=== PATIENT | female | born 1950 | race Caucasian/White ===

== ENCOUNTER 2018-07-23 09:27 | Day surgery (SDC) | payer MEDICARE, OTHER, SELFPAY ==
[2018-07-23 09:56] VITALS: BP 153/85; PULSE 77; RESP 16; TEMP 35.8; O2SAT 97
[2018-07-23] MEDS: Lactated Ringers 1,000 ML 30 ML IV (10:55)
--- NOTE | 2018-07-23 12:32 | W.PM.HP.N ---
Date of service: 07/23/18 Time of Service: 12:32 Assessment and Plan (1) Personal history of colonic polyps: Current visit: Yes Status: Acute I reviewed the colonoscopy procedure with Ms. Nunez, and discussed the risks of the procedure with her. All her questions were answered to her satisfaction History of Present Illness Chief Complaint: Personal history: Polyps Narrative: 67-year-old woman presenting for colorectal cancer screening by colonoscopy. She has been asymptomatic since her last colonoscopy. She did have polyps on her last colonoscopy. She has no family history of colorectal cancer. Review of Systems Review of Systems Constitutional: Denies fever, chills, malaise, fatigue, weight loss, sweating; Neurological: denies headache, seizures, syncope; weakness Eyes: denies loss of vision, double vision, blurry vision, [wears corrective lenses]; Ears,nose, throat: denies loss of hearing, tinnitus, vertigo, epistaxis, hoarseness, throat swelling. Cardiac: denies chest pain with exertion, palpation, pain shooting from chest into arm. Respiratory: denies cough, sputum production, chest congestion, wheezing. Gastrointestinal: denies abdominal pain, dysphagia, nausea, vomiting, hematamesis, hematochezia, melena. Genitourinary: denies frequency, urgency, hesitancy, incontinence, and dysuria. Musculoskeletal: denies arthralgia, myalgia, fracture, joint pain, joint swelling, back pain. Psychiatric: denies anxiety, depression, difficulty concentrating, difficulty sleeping, irritability. PFSH Medical History Dyspareunia in female History of colon polyps Hyperlipemia Overweight SVT (supraventricular tachycardia) Social History Smoking/Tobacco Use Status: Never Meds Home Medications Medication Instructions Recorded Confirmed Type multivitamin [Multiple Vitamins] 1 ea PO DAILY 01/10/13 07/23/18 History atorvastatin 20 mg PO HS #90 tab 10/31/13 07/23/18 History cholecalciferol (vitamin D3) 400 unit PO DAILY 12/11/17 07/23/18 History [Vitamin D3] metoprolol tartrate 50 mg PO BID #60 tab 03/27/18 07/23/18 Rx bisacodyl [Dulcolax] 5 mg PO ONCE #4 tab 06/07/18 07/23/18 Rx polyethylene glycol 3350 [Miralax] 17 g PO DAILY #255 gm 06/07/18 07/23/18 Rx Allergies Allergy/AdvReac Type Severity Reaction Status Date / Time codeine Allergy Mild RASH Unverified 07/23/18 10:02 erythromycin base AdvReac Intermediate NAUSEA/VOMI Unverified 07/23/18 10:02 TING sertraline AdvReac Mild Diarrhea & Unverified 07/23/18 10:02 Fatigue (50mg) Exam Narrative Exam Narrative: General: Awake, alert, oriented x 3, well groomed Neurological: cranial nerves II-12 grossly intact, moves all extremities, no focal deficits. HEENT: Normacephalic, atruamatic, pupils are equal, round, and reactive to light, extraocular muscles intact, mucousa moist and pink. Neck: normal visual inspection, supple, trachea midline. Heart: regular rate, rhythm Respiratory: No wheezing, cough, sputum production, or chest congestion. breathing unlabored. Abdomen: Soft, non-tender, non-distended, no hernias. Extremities: no cyanosis, clubbing or edema. Integument: warm, dry, normal turgor, no rashes, or lesion.
--- NOTE | 2018-07-23 12:41 | HPE_ITS ---
Date of service: 07/23/18 Time of Service: 12:32 Assessment and Plan (1) Personal history of colonic polyps: Current visit: Yes Status: Acute I reviewed the colonoscopy procedure with Ms. Nunez, and discussed the risks of the procedure with her. All her questions were answered to her satisfaction History of Present Illness Chief Complaint: Personal history: Polyps Narrative: 67-year-old woman presenting for colorectal cancer screening by colonoscopy. She has been asymptomatic since her last colonoscopy. She did have polyps on her last colonoscopy. She has no family history of colorectal cancer. Review of Systems Review of Systems Constitutional: Denies fever, chills, malaise, fatigue, weight loss, sweating; Neurological: denies headache, seizures, syncope; weakness Eyes: denies loss of vision, double vision, blurry vision, [wears corrective lenses]; Ears,nose, throat: denies loss of hearing, tinnitus, vertigo, epistaxis, hoarseness, throat swelling. Cardiac: denies chest pain with exertion, palpation, pain shooting from chest into arm. Respiratory: denies cough, sputum production, chest congestion, wheezing. Gastrointestinal: denies abdominal pain, dysphagia, nausea, vomiting, hematamesis, hematochezia, melena. Genitourinary: denies frequency, urgency, hesitancy, incontinence, and dysuria. Musculoskeletal: denies arthralgia, myalgia, fracture, joint pain , joint swelling, back pain. Psychiatric: denies anxiety, depression, difficulty concentrating, difficulty sleeping, irritability. PFSH Medical History Dyspareunia in female History of colon polyps Hyperlipemia Overweight SVT (supraventricular tachycardia) Social History Smoking/Tobacco Use Status: Never Meds Home Medications Medication Instructions Recorded Confirmed Type multivitamin [Multiple Vitamins] 1 ea PO DAILY 01/10/13 07/23/18 History atorvastatin 20 mg PO HS #90 tab 10/31/13 07/23/18 History cholecalciferol (vitamin D3) 400 unit PO DAILY 12/11/17 07/23/18 History [Vitamin D3] metoprolol tartrate 50 mg PO BID #60 tab 03/27/18 07/23/18 Rx bisacodyl [Dulcolax] 5 mg PO ONCE #4 tab 06/07/18 07/23/18 Rx polyethylene glycol 3350 [Miralax] 17 g PO DAILY #255 gm 06/07/18 07/23/18 Rx Allergies Allergy/AdvReac Type Severity Reaction Status Date / Time codeine Allergy Mild RASH Unverified 07/23/18 10:02 erythromycin base AdvReac Intermediate NAUSEA/VOMI Unverified 07/23/18 10:02 TING sertraline AdvReac Mild Diarrhea & Unverified 07/23/18 10:02 Fatigue (50mg) Exam Narrative Exam Narrative: General: Awake, alert, oriented x 3, well groomed Neurological: cranial nerves II-12 grossly intact, moves all extremities, no focal deficits. HEENT : Normacephalic, atruamatic, pupils are equal, round, and reactive to light, extraocular muscles intact, mucousa moist and pink. Neck: normal visual inspection, supple, trachea midline. Heart: regular rate, rhythm Respiratory: No wheezing, cough, sputum production, or chest congestion. breathing unlabored. Abdomen: Soft, non- tender, non-distended, no hernias. Extremities: no cyanosis, clubbing or edema. Integument: warm, dry, normal turgor, no rashes, or lesion.
--- NOTE | 2018-07-23 12:42 | W.PM.DSUDISC ---
Discharge Plan Disposition Patient Disposition: HOME Condition: Good Discharge Details Reason For Visit: Colorectal cancer screening with a personal histor Attending Provider: Lan Downey Primary Care Provider: Fany Ortiz Home Meds and New Rx's Prescriptions: Continue multivitamin [Multiple Vitamins] 1 EACH tablet 1 ea PO DAILY RF: 0 atorvastatin 40 MG tablet 20 mg PO HS Qty: 90 RF: 3 cholecalciferol (vitamin D3) [Vitamin D3] 400 UNIT tablet 400 unit PO DAILY RF: 0 metoprolol tartrate 50 MG tablet 50 mg PO BID Qty: 60 RF: 0 Discontinued polyethylene glycol 3350 [Miralax] 17 GM powder in packet 17 g PO DAILY Qty: 255 RF: 0 bisacodyl [Dulcolax (bisacodyl)] 5 MG tablet,delayed release (DR/EC) 5 mg PO ONCE Qty: 4 RF: 0 Discharge Instructions Instructions: Colonoscopy (DC) Activity:: Activity as Tolerated Diet:: As Tolerated Discharge Orders Discharge Orders: Discharge Order (Routine); Ordered 07/23/18 Ordered By: Lan Downey DS: Diagnosis Discharge Diagnosis (1) Personal history of colonic polyps: Status: Acute
--- NOTE | 2018-07-23 13:05 | BOWEL_PTH ---
PATIENT: Juanita Nunez LOC: [facility] U#:[id number] AGE/SX: 67/F ROOM: RE07/23/[address]: Lan Downey DO : 1950 BED: DIS: 07/23/2018 SPEC #: [id number] RECD: 07/23/18 16:57 STATUS: KAY RE #: [id number] CHICHI: 07/23/18 13:[address]: Lan Downey DEPT: Surgical Specimen RECD BY: Pat Rose ENTERED: 07/23/18 16:58 SP TYPE: Bowel OTHR DR: Fany Ortiz Tissues: 1 - BIOPSY BOWEL Procedures: GROSS AND MICRO LEVEL 4 Comments: [id number]
--- NOTE | 2018-07-23 13:23 | COLE_ITS ---
Date of service: 07/23/18 Time of Service: 13:19 Colonoscopy Report Date of procedure: 07/23/18 Post-op diagnosis procedure note: other (1. Ascending colon 2. Moderate sigmoid diverticulosis 3. Grade 2 hemorrhoids) Procedure: Colonoscopy to the cecum with biopsy by cold forceps Surgeon: Lan Downey Anesthesia proc note operative: MAC (Clara Wagner CRNA ASA 2, Mallampati 2) Estimated blood loss (mL): 1 Pathology: other (A sending colon polyp) Complications: None Disposition: same day Indications: 67-year-old woman presenting for colorectal cancer screening with a personal history of colon polyps. She has been asymptomatic since her last colonoscopy. Has no family history of colorectal cancer. The procedure has been reviewed with her, the risks of the procedure were discussed. All her questions were answered her satisfaction. Consents been obtained to proceed with colonoscopy Prep: Miralax/Dulcolax (Prep quality good) Findings: In examining the colon from cecum to anus, a single polyp was identified in the ascending colon which was less than 1 cm in greatest diameter and removed by cold biopsy forceps. The patient was also noted to have mild sigmoid diverticulosis, And at the anorectal junction grade 2 hemorrhoids Procedure Description: The patient was seen in the day surgery waiting area. Her identification was confirmed, and procedure check. She was then brought to the procedure room. Monitoring for telemetry, blood pressure, oxygen saturation, and end tidal CO2 monitoring were applied. An appropriate time out was performed to confirm, identification, allergies, medication, procedure, was performed. Sedation was titrated for affect by the MEDICAL RECORDS TECH; Once adequate sedation was achieved, I performed a inspection of the external perineum, and a digitial rectal examination. No significant external abnormalities were noted. On digital rectal examination, there was no blood, no masses, good rectal tone. I advanced the colonoscope from the anus to the cecum under direct visualization. The cecum was identified by the ileal-cecal valve, and the appendiceal orifice. The scope was then withdrawn in circumferential manner from the cecum to the rectum. A single polyp was identified in the ascending colon, the polyp was less than 1 cm in greatest diameter, and subsequently removed by cold biopsy forceps. Also, noted in the colon was some mild sigmoid diverticulosis. The scope was then withdrawn into the rectum, and retroflexed. Grade 2 hemorrhoids were noted in the anorectal junction. The scope was then withdrawn, terminating the procedure. There were no complications during the procedure, and the patient tolerated the procedure well. She was returned to the day surgery recovery area in good condition. Plan: We will await pathology before making further recommendations as to the polyp. If she continues to have problems with her hemorrhoids, she would be a candidate for hemorrhoid banding; otherwise, conservative management with topical treatment and fiber therapy are appropriate.
[2018-07-23 13:49] VITALS: BP 140/83; PULSE 80; RESP 18; TEMP 36.6; O2SAT 100
== END 2018-07-23 14:12 | disposition home or self-care (01) ==
PROVIDERS: PCP Family Medicine; Visit Provider Surgery
PROC: 0DJD8ZZ Inspection of Lower Intestinal Tract, Via Natural or Artificial Opening Endoscopic (ICD-10-PCS; CPT 45378; principal; 2018-07-23 11:15)
DX: Z12.11 Encounter for screening for malignant neoplasm of colon (principal); Z86.010 Personal history of colon polyps; D12.2 Benign neoplasm of ascending colon; K57.30 Diverticulosis of large intestine without perforation or abscess without bleeding; K64.1 Second degree hemorrhoids
CPT/HCPCS: 45380; 88305; NC; J2405

== ENCOUNTER 2019-04-18 09:03 | Outpatient (REF) | payer OTHER, SELFPAY ==
[2019-04-18 12:33] LABS: ALT 25 U/L (12-78); AST 23 U/L (15-37); Albumin 3.5 g/dL (3.4-5.0); Alkaline Phosphatase 87 U/L (46-116); Anion Gap 9.3 mmol/L (3-11); BUN 23 mg/dL (7-18); Bilirubin, Total 0.4 mg/dL (0.2-1.0); CO2 25.7 mmol/L (21.0-32.0); CREATININE 0.79 mg/dL (0.55-1.02); Calcium 9.6 mg/dL (8.5-10.1); Chloride 108 mmol/L (98-107); Glucose 95 mg/dL (70-100); Potassium 4.5 mmol/L (3.5-5.1); Sodium 143 mmol/L (136-145); TSH (W/Ref FT4) 6.13 uIU/mL (0.358-3.74); Total Protein 6.4 g/dL (6.4-8.2)
[2019-04-18 13:09] LABS: FREE T4 0.92 ng/dL (0.76-1.46)
[2019-04-18 15:49] LABS: Calculated LDL 122; Cholesterol 189 mg/dL (50-200); HDL Cholesterol 48 mg/dL (40-60); Triglyceride 95 mg/dL (30-150)
== END 2019-04-18 09:23 ==
LOC: NCHCN 09:03
PROVIDERS: PCP Family Medicine; Visit Provider Family Medicine
DX: E78.5 Hyperlipidemia, unspecified (principal); I47.1 Supraventricular tachycardia
CPT/HCPCS: 80053; 80061; 83721; 84439; 84443

== ENCOUNTER 2019-07-17 11:36 | Emergency (ER) | payer OTHER, SELFPAY ==
[2019-07-17 11:40] VITALS: BP 133/74; PULSE 88; RESP 18; TEMP 36.5; O2SAT 96
--- NOTE | 2019-07-17 12:03 | ED.GENADUL_ITS ---
Discharge Plan Disposition Patient Disposition: HOME Condition: Stable Discharge Details Chief Complaint: RespSymp Clinical Impression: Pneumonia Primary Care Provider: Fany Ortiz ED Provider: Sarah Rodrigues Home Meds and New Rx's Prescriptions: New amoxicillin-pot clavulanate [Augmentin] 875-125 mg tablet 1 tab PO BID 7 Days Qty: 14 RF: 0 Continued multivitamin [Multiple Vitamins] 1 EACH tablet 1 ea PO DAILY RF: 0 atorvastatin 40 MG tablet 20 mg PO HS Qty: 90 RF: 3 cholecalciferol (vitamin D3) [Vitamin D3] 400 UNIT tablet 400 unit PO DAILY RF: 0 metoprolol tartrate 50 MG tablet 50 mg PO BID Qty: 60 RF: 0 Discharge Instructions Instructions: Pneumonia (ED) Additional Instructions: Take the antibiotics until finished. Use the albuterol inhaler as needed and directed for shortness of breath. Drink plenty of fluids and get plenty of rest. Take [id number] cough and cold medication as needed and directed. Follow-up with your primary care doctor this week for reevaluation. Return immediately to the emergency department if you develop any worsening or new concerning symptoms. Discharge Data Discharge Date/Time-TO BE ENTERED AT DEPARTURE: 07/17/19 13:46 Discharge Physician: Sarah Rodrigues Medical Decision Making 68-year-old female with history of hypertension, hyperlipidemia, SVT who presents with dry cough, and occasional shortness of breath for the past 6 days. She has a history of pneumonia and states she wanted to be evaluated before it developed into this. She denies any fever, chest pain and has had a good appetite. Vitals within normal limits. Lungs clear to auscultation. She appears nontoxic. No wheezing. Chest x-ray noted left lower lobe pneumonia versus atelectasis. In setting of patient's symptoms, will treat for possible pneumonia. Prescription for augmentin given. She is advised to drink plenty of fluids, get plenty of rest, take [id number] symptomatic cough and cold medication. She is advised to follow-up with her primary care doctor for reevaluation and to return here anytime if worse. Medical Records Medical records reviewed: Yes I reviewed the patient's medical records. Imaging Data Radiologic Study: Radiologist's impression: XR Chest, 2 Views Exam date and time: 07/17/2019 12:04 PM Clinical history: 68 years old, female; Cough and shortness of breath and other: Cough, shortness of breath, R/O pneumonia TECHNIQUE: Imaging protocol: XR of the chest Views: 2 views. COMPARISON: CR CHEST 2 VIEWS PA,LAT 03/26/2018 10:08 AM FINDINGS: Lungs: Opacity in the left lower lobe may represent atelectasis or pneumonia. Pleural space: Unremarkable. No pleural effusion. No pneumothorax. Heart/Mediastinum: Unremarkable. No cardiomegaly. Bones/joints: Unremarkable. IMPRESSION: Opacity in the left lower lobe may represent atelectasis or pneumonia. HPI General Mode of arrival: ambulatory . Date/Time Provider Initiated Documentation: 07/17/19 11:54 . Limitations to Documentation: no limitations . Information obtained by: patient . HPI Narrative: Patient is a 68-year-old female with history of hypertension, hyperlipidemia, sleep apnea, SVT who presents with dry cough, intermittent shortness of breath for the past 6 days. She has a history of pneumonia last year and states her symptoms feel similar but she was much more sick last year. She denies any known fever or chest pain. She states she has been eating and drinking well. She denies any recent antibiotics. Related Data Home Medications Medication Instructions Recorded Confirmed multivitamin [Multiple Vitamins] 1 ea PO DAILY 01/10/13 07/17/19 atorvastatin 20 mg PO HS #90 tab 10/31/13 07/17/19 cholecalciferol (vitamin D3) 400 unit PO DAILY 12/11/17 07/17/19 [Vitamin D3] metoprolol tartrate 50 mg PO BID #60 tab 03/27/18 07/17/19 amoxicillin-pot clavulanate 1 tab PO BID 7 Days #14 tab 07/17/19 [Augmentin] Previous Rx's Medication Instructions Recorded metoprolol tartrate 50 mg PO BID #60 tab 03/27/18 amoxicillin-pot clavulanate 1 tab PO BID 7 Days #14 tab 07/17/19 [Augmentin] Allergies Allergy/AdvReac Type Severity Reaction Status Date / Time codeine Allergy Mild RASH Unverified 07/17/19 11:47 erythromycin base AdvReac Intermediate NAUSEA/VOMI Unverified 07/17/19 11:47 TING sertraline AdvReac Mild Diarrhea & Unverified 07/17/19 11:47 Fatigue (50mg) General Stated Complaint: RespSymp XIOMY: 3 Review of Systems Review of Systems ROS Unobtainable: All systems reviewed & are unremarkable except as noted in HPI and below Constitutional Constitutional: Reports as per HPI, Denies chills and Denies fever(s) Eyes Eyes: Denies blurry vision ENT Ears, Nose, Mouth, and Throat: Denies dizziness, Denies sore throat and Denies throat swelling Cardiovascular Cardiovascular: Denies chest pain and Reports dyspnea Respiratory Respiratory: Reports cough and Reports dyspnea Gastrointestinal Gastrointestinal: Denies abdominal pain, Denies diarrhea and Denies vomiting Genitourinary Genitourinary: Denies hematuria and Denies dysuria Musculoskeletal Musculoskeletal: Denies back pain and Denies numbness Integumentary/Breasts Skin/Breast: Denies lesions and Denies rash Neurologic Neurologic: Denies dizziness, Denies focal weakness and Denies numbness Allergic/Immunologic Allergic/Immunologic: Denies throat swelling PFSH Medical History Abnormal colonoscopy (Acute 07/23/18) Dr Downey, tubular adenoma, repeat in 5 years Dyspareunia in female History of colon polyps Hyperlipemia Overweight SVT (supraventricular tachycardia) Tubular adenoma of colon (Acute 07/23/18) Dr Downey, repeat colo in five years Surgical History History of ankle surgery (Acute) History of knee surgery (Acute) History of tonsillectomy (Chronic) Social History Smoking/Tobacco Use Status: Never Alcohol Intake: current Alcohol Intake frequency: a few times a month Drug use: Never Do you feel safe at home: Yes Do you feel safe in your relationship?: Yes Exam Const General: cooperative and healthy appearing Orientation: alert and awake HENWV Head: normal to inspection Ears: hearing grossly normal bilaterally, external ears normal and TM's normal bilaterally General nose exam: external nose normal Face and sinus: normal facial exam Mouth: oral mucosae normal Teeth and gingiva: dentition normal Throat: posterior oropharynx normal Eyes General: appearance normal, both eyes and all related structures Eyelids: eyelids normal EOM: EOM intact bilaterally Neck Neck: normal visual inspection Lymphatic: no lymphadenopathy noted Chest Chest: normal inspection of the chest Resp Effort & Inspection: normal respiratory effort and able to speak in complete sentences Auscultation: clear to auscultation bilaterally Cardio Rate: regular rate Rhythm: regular rhythm GI Inspection: normal to inspection Palpation: soft, not firm, no guarding, no hepatosplenomegaly, no masses and nontender Auscultation: normal bowel sounds Skin General skin exam: no rashes or lesions noted Neuro General: alert and awake Cognition: normal cognition Speech: speech normal Gait: normal gait Motor: muscle tone normal throughout Sensory Exam: no sensory deficits noted Extrem General: normal to inspection, full ROM, normal capillary refill and no edema Psych Appearance: grossly normal Mental Status: mental status grossly normal Speech and Movement: speech and movement normal Affect: normal affect Thought Process: normal Course Vital Signs Vital signs: Vital Signs Temperature 97.7 F 07/17/19 11:40 Pulse 88 07/17/19 11:40 Respiratory Rate 18 07/17/19 11:40 Blood Pressure 133/74 07/17/19 11:40 Pulse Oximetry 96 07/17/19 11:40 Temperature 97.7 F 07/17/19 11:40 Temperature Source Tympanic 07/17/19 11:40 Pulse 88 07/17/19 11:40 Respiratory Rate 18 07/17/19 11:40 Respiratory Effort Non-Labored 07/17/19 11:48 Respiratory Depth Normal 07/17/19 11:48 Blood Pressure 133/74 07/17/19 11:40 Blood Pressure Position Sitting 07/17/19 11:40 Pulse Oximetry 96 07/17/19 11:40 Oxygen Delivery Method Room Air 07/17/19 11:40 Oxygen Flow Rate 0 07/17/19 11:40 Pain Level 0 07/17/19 11:40
--- NOTE | 2019-07-17 12:03 | DI.RAD_ITS ---
EXAM: XR CHEST 2V PA LATERAL INDICATION: cough, shortness of breath, r/o pneumonia. COMPARISON: CHEST 2 VIEWS PA,LAT from 03/26/2018 TECHNIQUE: 2D digital imaging was performed. FINDINGS: Examination is compared with prior examination of 03/26/2018. Multiple bilateral pulmonary radiodens ities seen on the prior examination are largely resolved. There are some patchy areas of increased r adiodensity in the left lung base which could represent acute or persistent radiodensities. Otherwis e lungs appear clear. No pleural effusion seen. IMPRESSION: Conclusion left basilar radiodensities, acute infectious process possible, appropriate follow-up stud ies requested.
--- NOTE | 2019-07-17 12:37 | DI.VRAD_ITS ---
PROCEDURE INFORMATION: Exam: XR Chest, 2 Views Exam date and time: 07/17/2019 12:04 PM Clinical history: 68 years old, female; Cough and shortness of breath and other: Cough, shortness of breath, R/O pneumonia TECHNIQUE: Imaging protocol: XR of the chest Views: 2 views. COMPARISON: CR CHEST 2 VIEWS PA,LAT 03/26/2018 10:08 AM FINDINGS: Lungs: Opacity in the left lower lobe may represent atelectasis or pneumonia. Pleural space: Unremarkable. No pleural effusion. No pneumothorax. Heart/Mediastinum: Unremarkable. No cardiomegaly. Bones/joints: Unremarkable. IMPRESSION: Opacity in the left lower lobe may represent atelectasis or pneumonia. Dictated and Authenticated by: Naty Tamayo MD. Ordering:DAMION Smith MD
[2019-07-17] MEDS: Albuterol HFA 8 GM 60 PUFF INH IH (13:49)
== END 2019-07-17 13:46 | disposition home or self-care (01) ==
PROVIDERS: Emergency Provider Physician Assistant; PCP Family Medicine
DX: J18.9 Pneumonia, unspecified organism (principal); I10 Essential (primary) hypertension
CPT/HCPCS: 99283; 71046; 99282

== ENCOUNTER 2019-08-25 01:40 | Outpatient (CLI) | payer OTHER, SELFPAY ==
--- NOTE | 2019-08-25 14:30 | DI.US_ITS ---
APPROVED REPORT Conclusion Left Ventricle : The left ventricle is normal size. The left ventricular ejection fraction is within the normal range. There is normal left ventricular wall thickness. There is normal LV segmental wall motion. LVEF is 65-70%. Right Ventricle : The right ventricle is normal size. The right ventricular systolic function is norm al. Atria : The left atrium size is normal. The right atrium size is normal. Aortic Valve : The Aortic valve is sclerotic. Aortic valve is probably trileaflet. Trace aortic regur gitation. There is no aortic valvular stenosis. Mitral Valve : The mitral valve is normal in structure. Mild mitral regurgitation. No evidence of nicanor ral valve stenosis. Tricuspid Valve : The tricuspid valve is normal in structure. Mild tricuspid regurgitation. Pulmonic Valve : Pulmonic valve is not well visualized. Great Vessels : IVC is normal in size and collapses >50% with inspiration. RVSP is estimated to be b etween 22-25 mmHg. There is no prior echocardiogram available for comparison EXAM: Comprehensive 2D, Doppler, and color-flow Echocardiogram Patient Location: Out-Patient Fitness Leader: ALEX Dos Santos (AE) Indications: SVT Left Ventricle The left ventricle is normal size. The left ventricular ejection fraction is within the normal range. There is normal left ventricular wall thickness. There is normal LV segmental wall motion. The left ventricular diastolic function is normal. LVEF is 65-70%. Right Ventricle The right ventricle is normal size. The right ventricular systolic function is normal. Atria The left atrium size is normal. The right atrium size is normal. Aortic Valve The Aortic valve is sclerotic. Aortic valve is probably trileaflet. There is no aortic valvular steno sis. Trace aortic regurgitation. Mitral Valve The mitral valve is normal in structure. No evidence of mitral valve stenosis. Mild mitral regurgitat ion. Tricuspid Valve The tricuspid valve is normal in structure. Mild tricuspid regurgitation. Pulmonic Valve Pulmonic valve is not well visualized. Great Vessels The aortic root is normal in size. IVC is normal in size and collapses >50% with inspiration. RVSP is estimated to be between 22-25 mmHg Pericardium There is no pericardial effusion. 2D Dimensions IVSd 1.02 cm F: 0.6-1.0 LV EDV A2C 71.54 mL PWd 1.04 cm F: 0.6 - 1.0 LV EDV A4C 87.31 mL LVDd 4.36 cm F: 3.9 - 5.3 LA Volume Index A2C 29.27 mL/m2 LVDs 2.56 cm F: 2.2 - 3.5 LA Volume Index A4C 22.02 mL/m2 Aortic Root 2.76 cm F: 2.7 - 3.3 LA Volume Index Biplane 25.94 mL/m2 Left Atrium 3.05 cm F: 2.7 - 3.8 LA Area A4C 16.39 cm2 RA Area A4C 16.50 cm2 LA Area A2C 19.31 cm2 LVOT 1.69 cm (M/F) 1.5-2.5 LA/Aortic Root Ratio 0.91 Ascending Aorta 3.73 cm F: 2.3 - 3.1 EF AP4 65.47 % LVEF (Teich) 72.41 % EF AP2 51.19 % LVEF (Tom's) 60.28 % F: 54 - 74 EF BP 60.28 % FS 41.28 % LV Diastology E Decel Time 234.00 (160-240 msec) E/A Ratio 0.9 MED E' 0.06 (>0.07 m/s) LV E/e MED 10.83 (<14) LAT E' 0.10 (>0.1 m/s) LV E/e LAT 7.13 (<14) Aortic Valve LVOT Area 2.26 cm2 LVOT Peak Orlando. 1.57 m/s LVOT Mean Orlando. 0.95 m/s LVOT Peak Gr. 9.87 mmHg LVOT Mean Gr. 4.39 mmHg LVOT VTI 0.30 m AoV Peak Orlando. 1.67 (0.5-1.3 m/s) AoV Mean Orlando. 1.15 m/s AI PHT 1264.71 msec AO Peak GR. 11.19 mmHg AO Mean GR. 5.87 (<5 mmHg) AO VTI 0.31 (0.18-0.25 m) AV Regurg Decel. 4361.06 msec VICKIE (VTI) 2.11 (2.5-4.5 cm2) VICKIE (VTI) Index 1.06 cm/m2 Mitral Valve MV E Max Orlando. 0.69 (0.4-1.3 m/s) MV A Velocity 0.74 (0.4-1.3 m/s) E/A Ratio 0.93 MV Decel. Time 234.13 (160-240 msec) MV PHT 67.90 msec MVA PHT 3.24 cm2 Pulmonary Valve PV Peak Velocity 0.81 (0.5-1.5 m/s) Tricuspid Valve TR P. Velocity 2.39 m/s TV Regurg Vmax 2.39 m/s TR P. Gradient 22.77 mmHg
== END 2019-08-25 02:00 ==
PROVIDERS: PCP Family Medicine; Visit Provider Internal Medicine Cardiovascular Disease
DX: I47.1 Supraventricular tachycardia (principal); I35.8 Other nonrheumatic aortic valve disorders; I10 Essential (primary) hypertension; E78.5 Hyperlipidemia, unspecified
CPT/HCPCS: 93306

== ENCOUNTER 2019-08-29 10:42 | Outpatient (REF) | payer OTHER, SELFPAY ==
[2019-08-30 11:36] LABS: Hepatitis C Ab w Rflx HCV PCR Negative (NEGAT)
== END 2019-08-29 11:02 ==
LOC: NCHCN 10:42
PROVIDERS: PCP Family Medicine; Visit Provider Family Medicine
DX: Z11.59 Encounter for screening for other viral diseases (principal); R69 Illness, unspecified
CPT/HCPCS: 86803

== ENCOUNTER 2019-12-27 08:48 | Outpatient (CLI) | payer OTHER, SELFPAY | END 2019-12-27 09:08 | PROVIDERS: PCP Family Medicine; Visit Provider Internal Medicine Cardiovascular Disease | DX: I47.1 Supraventricular tachycardia (principal); I10 Essential (primary) hypertension | CPT/HCPCS: 99204; 93005; 93010 ==

== ENCOUNTER 2020-01-05 15:07 | Outpatient (CLI) | payer OTHER, SELFPAY ==
[2020-01-05 16:25] LABS: Anion Gap 5.5 mmol/L (3-11); BUN 24 mg/dL (7-18); CO2 32.5 mmol/L (21.0-32.0); CREATININE 0.96 mg/dL (0.55-1.02); Calcium 9.6 mg/dL (8.5-10.1); Chloride 103 mmol/L (98-107); Estimated GFR 57.29 (mL/min/1.73m2); Glucose 93 mg/dL (74-106); Potassium 4.4 mmol/L (3.5-5.1); Sodium 141 mmol/L (136-145)
== END 2020-01-05 15:27 ==
PROVIDERS: PCP Family Medicine; Visit Provider Internal Medicine Cardiovascular Disease
DX: I10 Essential (primary) hypertension (principal); Z79.899 Other long term (current) drug therapy
CPT/HCPCS: 36415; 80048

== ENCOUNTER 2020-04-19 08:15 | Outpatient (REF) | payer OTHER, SELFPAY ==
[2020-04-19 20:47] LABS: ALT 20 U/L (14-59); AST 21 U/L (15-37); Albumin 3.9 g/dL (3.4-5.0); Alkaline Phosphatase 79 U/L (46-116); Anion Gap 8.9 mmol/L (3-11); BUN 22 mg/dL (7-18); Bilirubin, Total 0.6 mg/dL (0.2-1.0); CO2 29.1 mmol/L (21.0-32.0); CREATININE 0.94 mg/dL (0.55-1.02); Calcium 9.8 mg/dL (8.5-10.1); Calculated LDL 121 mg/dL (<100); Chloride 104 mmol/L (98-107); Cholesterol 202 mg/dL (<200); Glucose 98 mg/dL (74-106); HDL Cholesterol 44 mg/dL (40-60); Potassium 4.6 mmol/L (3.5-5.1); Sodium 142 mmol/L (136-145); TSH (W/Ref FT4) 6.41 uIU/mL (0.36-3.74); Total Protein 6.9 g/dL (6.4-8.2); Triglyceride 188 mg/dL (<150)
[2020-04-19 21:06] LABS: FREE T4 0.96 ng/dL (0.76-1.46)
== END 2020-04-19 08:35 ==
LOC: NCHCN 08:15
PROVIDERS: PCP Family Medicine; Visit Provider Family Medicine
DX: R03.0 Elevated blood-pressure reading, without diagnosis of hypertension (principal); N94.10 Unspecified dyspareunia; E78.5 Hyperlipidemia, unspecified; E66.3 Overweight
CPT/HCPCS: 80053; 80061; 84439; 84443

== ENCOUNTER 2020-05-17 00:23 | Outpatient (CLI) | payer OTHER, SELFPAY ==
--- NOTE | 2020-05-17 12:59 | DI.MAMMO_ITS ---
EXAM: MG MAMMO SCREENING CLINICAL HISTORY: SCREENING,YEARLY,Z12.31 TECHNIQUE: Bilateral full field digital CC and MLO mammographic images were obtained with 3D tomosyn thesis and utilizing computer aided detection (CAD). COMPARISON: Available for comparison. FINDINGS: Masses/Architectural Distortion: None seen. Microcalcifications: No suspicious pleomorphic-type are seen. Skin Thickening/Nipple Retraction: None. IMPRESSION: 1. No significant interval change with no specific features of malignancy noted. 2. Unless there is more urgent need, screening mammography is recommended, as per [employer] guidelines. BI-RADS Category 1 - Negative Breast Density - Category B - Scattered areas of fibroglandular density A negative radiographic report should not delay biopsy if a dominant or clinically suspicious mass is present. Up to ten percent of cancers are not identified on mammography. A negative report may reinforce clinical impression. Adenosis and dense breasts may obscure an underlying neoplasm. False positive reports average 6 to 10%. Patient will receive a letter notifying them of these results.
== END 2020-05-17 00:43 ==
PROVIDERS: PCP Family Medicine; Visit Provider Family Medicine
DX: Z12.31 Encounter for screening mammogram for malignant neoplasm of breast (principal)
CPT/HCPCS: 77063; 77067

== ENCOUNTER → 2021-02-18 13:55 | Outpatient (BNVA) | payer OTHER, SELFPAY | PROVIDERS: PCP Family Medicine; Referring Provider Family Medicine; Visit Provider Internal Medicine Cardiovascular Disease | DX: I47.1 Supraventricular tachycardia (principal); I10 Essential (primary) hypertension; Z79.899 Other long term (current) drug therapy | CPT/HCPCS: 99214; 99213 ==

== ENCOUNTER 2021-05-03 08:20 | Outpatient (REF) | payer OTHER, SELFPAY ==
[2021-05-03 20:35] LABS: ALT 18 U/L (14-59); AST 10 U/L (15-37); Albumin 3.7 g/dL (3.4-5.0); Alkaline Phosphatase 83 U/L (46-116); Anion Gap 14.4 mmol/L (3-11); BUN 22 mg/dL (7-18); Bilirubin, Total 0.4 mg/dL (0.2-1.0); CO2 26.6 mmol/L (21.0-32.0); CREATININE 0.9 mg/dL (0.55-1.02); Calcium 9.8 mg/dL (8.5-10.1); Calculated LDL 126 mg/dL (<100); Chloride 105 mmol/L (98-107); Cholesterol 207 mg/dL (<200); Glucose 96 mg/dL (74-106); HDL Cholesterol 53 mg/dL (40-60); Potassium 4.6 mmol/L (3.5-5.1); Sodium 146 mmol/L (136-145); TSH (W/Ref FT4) 5.95 uIU/mL (0.36-3.74); Total Protein 6.6 g/dL (6.4-8.2); Triglyceride 144 mg/dL (<150)
[2021-05-03 20:54] LABS: FREE T4 0.98 ng/dL (0.76-1.46)
== END 2021-05-03 08:21 | disposition home or self-care (01) ==
LOC: NCHCN 08:20
PROVIDERS: PCP Family Medicine; Visit Provider Family Medicine
DX: Z00.00 Encounter for general adult medical examination without abnormal findings (principal); I10 Essential (primary) hypertension; E78.5 Hyperlipidemia, unspecified; E66.3 Overweight
CPT/HCPCS: 80053; 80061; 84439; 84443

== ENCOUNTER → 2022-05-06 09:41 | Outpatient (BNVA) | payer MEDICARE, SELFPAY | PROVIDERS: PCP Family Medicine; Referring Provider Family Medicine; Visit Provider Internal Medicine Cardiovascular Disease | DX: I47.1 Supraventricular tachycardia (principal); I10 Essential (primary) hypertension | CPT/HCPCS: 93005; 99214; 99213 ==

== ENCOUNTER 2022-05-06 09:43 | Outpatient (CLI) | payer MEDICARE, SELFPAY ==
--- NOTE | 2022-05-06 09:30 | RT.EKG_ITS ---
APPROVED REPORT Exam: Resting ECG Reason for Exam: SVT Patient Location: O HR:106 bpm ECG Measurements Heart Rate 106 AXIS CO 169 P 53 QRSd 93 QRS -9 QT 337 T 55 QTc 448 Conclusion Sinus tachycardia...rate> 99 Baseline wander in lead(s) II,III,aVF,V4,V6
== END 2022-05-06 09:44 | disposition home or self-care (01) ==
LOC: DI.CARD 09:44
PROVIDERS: PCP Family Medicine; Visit Provider Internal Medicine Cardiovascular Disease
DX: I47.1 Supraventricular tachycardia (principal)
CPT/HCPCS: 93010

== ENCOUNTER 2022-06-13 18:59 | Outpatient (REF) | payer MEDICARE, SELFPAY ==
[2022-06-13 19:58] LABS: ALT 20 U/L (14-59); AST 20 U/L (15-37); Albumin 3.6 g/dL (3.4-5.0); Alkaline Phosphatase 79 U/L (46-116); Anion Gap 8.9 mmol/L (3-11); BUN 25 mg/dL (7-18); Bilirubin, Total 0.5 mg/dL (0.2-1.0); CO2 27.1 mmol/L (21.0-32.0); CREATININE 0.9 mg/dL (0.55-1.02); Calcium 9.8 mg/dL (8.5-10.1); Calculated LDL 103 mg/dL (<100); Chloride 106 mmol/L (98-107); Cholesterol 197 mg/dL (<200); Glucose 154 mg/dL (74-106); HDL Cholesterol 49 mg/dL (40-60); Potassium 4.2 mmol/L (3.5-5.1); Sodium 142 mmol/L (136-145); TSH (W/Ref FT4) 2.29 uIU/mL (0.36-3.74); Total Protein 7.4 g/dL (6.4-8.2); Triglyceride 228 mg/dL (<150)
[2022-06-16 05:33] LABS: Vitamin D 25 Total 33.1 ng/mL (30-100)
== END 2022-06-13 19:00 | disposition home or self-care (01) ==
LOC: NCHCN 18:59
PROVIDERS: PCP Family Medicine; Visit Provider Family Medicine
DX: I10 Essential (primary) hypertension (principal); E55.9 Vitamin D deficiency, unspecified; R94.6 Abnormal results of thyroid function studies; E78.5 Hyperlipidemia, unspecified
CPT/HCPCS: 80053; 80061; 82306; 84443

== ENCOUNTER → 2022-06-25 02:14 | Outpatient (CLI) | payer MEDICARE, SELFPAY ==
--- NOTE | 2022-06-25 14:10 | DI.MAMMO_ITS ---
Exam(s) MAMMO SCREENING EXAM: MAMMO SCREENING CLINICAL HISTORY: SCREENING, Z12.31. TECHNIQUE: Bilateral full field digital CC and MLO mammographic images were obtained with 3D tomosyn thesis and utilizing computer aided detection (CAD). COMPARISON: Prior mammograms were reviewed, the most recent being April 2020. FINDINGS: There has been no significant change in appearance and distribution of the fibroglandular tissue. There are no new significant findings in left breast. In the right breast there is a new round noncalcified nodular density seen on both CC and MLO images located 8 cm in from the nipple and measuring approximately 3 x 3 millimeters. There are no malignan t-appearing microcalcification groups in this region or elsewhere in either breast. There is no significant architectural distortion nor skin thickening-retraction. IMPRESSION: 1. No radiographic evidence of malignancy in the left breast. 2. Round 3 millimeter new right breast nodule seen on both CC and MLO views. Spot compression views and ultrasound recommended. BI-RADS Category 0 - Assessment Incomplete: Need additional imaging evaluation Breast Density - Category B - Scattered areas of fibroglandular density Breast density Category C or D implies that the patient has dense breast tissue. Dense breast tissue can make it harder to find cancer on a mammogram. Dense breast tissue is also associated with an incr eased risk of breast cancer. This information about the result of the mammogram report was provided to the patient to raise their awareness. Use this report when you speak with the patient about their risks for breast cancer, which includes their family history. At that time, you may recommend additional screening tests (Ultrasoun d or MRI) as these tests may add significant information. A negative radiographic report should not delay biopsy if a dominant or clinically suspicious mass is present. Up to ten percent of cancers are not identified on mammography. A negative report may reinforce clinical impression. Adenosis and dense breasts may obscure an underlying neoplasm. False positive reports average 6 to 10%. Patient will receive a letter notifying them of these results.
== END ==
PROVIDERS: PCP Family Medicine; Visit Provider Family Medicine
DX: Z12.31 Encounter for screening mammogram for malignant neoplasm of breast (principal); R92.8 Other abnormal and inconclusive findings on diagnostic imaging of breast
CPT/HCPCS: 77063; 77067

== ENCOUNTER → 2022-07-01 01:30 | Outpatient (CLI) | payer MEDICARE, SELFPAY ==
--- NOTE | 2022-07-01 | DI.MAMMO_ITS ---
Exam(s) MG MAMMO SCREEN CALL BACK UNI US BREAST RT COMPLETE EXAM: MG MAMMO SCREEN CALL BACK UNI and U/S breast RT complete CLINICAL HISTORY: F/U MAMMO, NEW RT BREAST NODULE, R92.8. TECHNIQUE: Craniocaudal and mediolateral oblique Full Field Digital Mammography views of the right b reast with Computer Aided Diagnosis followed by Tomosynthesis and right breast ultrasound. COMPARISON: Comparison is made with prior examinations. FINDINGS: Mammography/Tomosynthesis: Masses/Architectural Distortion: There is a well-circumscribed nodule in the inferior right breast on the MLO view. There is also well-circumscribed nodule seen in the medial aspect of the right breast on the additional views. These nodules have been seen on prior examinations and appears stable. Microcalcifictions: No suspicious pleomorphic-type are seen. Skin Thickening/Nipple Retraction: None. Complete right breast US: Echotexture: Normal appearance of the glandular tissue. Shadowing: No suspicious foci. Cyst: None. Solid lesions: None seen. Ductal dilation: None. IMPRESSION: 1. No evidence of malignancy is noted. 2. A six-month follow-up right mammogram is recommended for re-evaluation. 3. The findings were discussed with the patient on the date of the examination. BI-RADS Category 3 - 6 month - Probably Benign Finding: Recommend follow-up imaging in 6 months Breast Density - Category B - Scattered areas of fibroglandular density Breast density Category C or D implies that the patient has dense breast tissue. Dense breast tissue can make it harder to find cancer on a mammogram. Dense breast tissue is also associated with an incr eased risk of breast cancer. This information about the result of the mammogram report was provided to the patient to raise their awareness. Use this report when you speak with the patient about their risks for breast cancer, which includes their family history. At that time, you may recommend additional screening tests (Ultrasoun d or MRI) as these tests may add significant information. A negative radiographic report should not delay biopsy if a dominant or clinically suspicious mass is present. Up to ten percent of cancers are not identified on mammography. A negative report may reinforce clinical impression. Adenosis and dense breasts may obscure an underlying neoplasm. False positive reports average 6 to 10%. Patient will receive a letter notifying them of these results.
== END ==
PROVIDERS: PCP Family Medicine; Visit Provider Family Medicine
DX: R92.8 Other abnormal and inconclusive findings on diagnostic imaging of breast (principal); Z12.31 Encounter for screening mammogram for malignant neoplasm of breast
CPT/HCPCS: 76642; 77063; 77067

== ENCOUNTER → 2022-07-18 00:24 | Outpatient (CLI) | payer MEDICARE, SELFPAY ==
--- OUTSIDE RECORDS SUMMARY | 2022-07-18 00:33 | XMS_ITS | Encounter Summary ---
:1950 Author Organization [facility] Address [address] [place] [address] Care Team Providers Name Role Phone Unavailable Primary Care Provider Unavailable Encounter Details Date Type Department Care Team Description 05/24/2008 Before PRISM [facility] - Adrianna Salas, Converted Visit Maple conversion CRIME VICTIM SPECIALIST (Maple) [address] [place] [address] [place] [phone] (Wo rk) Social History Tobacco Use Types Packs/Day Years Used Date Never Assessed Sex Assigned at Date Recorded Not on file documented as of this encounter Plan of Treatment Not on filedocumented as of this encounter Procedures Procedure Name Priority Date/Time Associated Diagnosis Comme [facility] CYTOPATHOLOGY Routine 05/24/2008 0:00 EDT Results for this procedure are i n the results section . documented in this encounter Results CYTOPATHOLOGY (05/24/2008 0:00 EDT) Pathology Report: CYTOPATHOLOGY REPORT ? [facility] ? LAB Reports generated via [employer] interface contain original data; ? however they are lacking the format of the original report. ? Caution should be taken when reading/interpreting unformatted reports. ? Name: ? HEWITT, VERA L ? Accession #: ? [id number] ? : ? 1950 (Age: 57) ??F ?Collect Date: ? 05/24/2008 ? Location: ? [facility] ? Receive Date: ? 05/25/2008 ? Provider: ?ADRIANNA L R OBINSON CRIME VICTIM SPECIALIST ? Copy to: ? Specimen/Source: ? ThinPrep Pap Test, Cervix, processed on Cytyc ThinPrep ?? Imaging System, with manual evaluation ? Last Menstrual Period: ? years ? Previous Gynecologic Patholo gy: ? Yes: cervical polyp ? Other: ? HPVA - HPV testing requested if ASC-US on the current ThinPrep Pap test. ? SPECIMEN ADEQUACY ? Satisfactory for Eval uation ? - transformation zone compon ent present ? GENERAL CATEGORIZATION ? Negative for Intraepi thelial Lesion or Malignancy ? Document reviewed and electr onically signed by: ? Jose R Costello, CT (ASCP) ? Report Date: ??08/04/ 2008 13:15 ? End of Report ? Specimen Performing Organization Address City/State/ZIP Code Phon e Number [facility] [address] [place] [address] SERVICES [facility] [address] [place] [address] documented in this encounter Visit Diagnoses Not on filedocumented in this encounter
--- OUTSIDE RECORDS SUMMARY | 2022-07-18 00:33 | XMS_ITS | Encounter Summary ---
:1950 Author Organization [facility] Address [address] [place] [address] Care Team Providers Name Role Phone Unavailable Primary Care Provider Unavailable Encounter Details Date Type Department Care Team Description 04/25/2004 Results Only [facility] - Yadira Jiménez son, Adrianna Saleh, BALLET DANCER conversion [address] [place] [phone] (Wo rk) Social History Tobacco Use Types Packs/Day Years Used Date Never Assessed Sex Assigned at Date Recorded Not on file documented as of this encounter Plan of Treatment Not on filedocumented as of this encounter Procedures Procedure Name Priority Date/Time Associated Diagnosis Comme [facility] CYTOPATHOLOGY Routine 04/25/2004 0:00 EDT Results for this procedure are i n the results section . documented in this encounter Results CYTOPATHOLOGY (04/25/2004 0:00 EDT) Pathology Report: CYTOPATHOLOGY REPORT [facility] Reports generated via electronic interface contain tiana ginal data; however they are lacking the format of the original re port. Caution should be taken when reading/interpreting unfo rmatted reports. Name: ? CARSON HEWITT ? Accession #: ? [id number] : ? 1950 (Age: 53) ??F ?Collect Date: ? 10/2003 Location: ? [facility] ? Receive Date : ? 05/01/2004 Provider: ?ADRIANNA DOTY BALLET DANCER Copy to: ? Specimen/Source: ?ThinPrep Pap Test, Cervix/ Endocervix Last Menstrual Period: ? 04/08/2003 ? SPECIMEN ADEQUACY ? Satisfactory for Evaluation - transformation zone component present GENERAL CATEGORIZATION ? Negative for Intraepithelial Lesion or Malignan cy INTERPRETATION ? Reactive cellular randell nges associated with inflammation present (includes repair). Shift in avis present suggestive of bacterial vaginos is. ? Document reviewed and electronically signed by: ? Kendall Ceballos MD ? Report Date: ??05/08/2004 16:57 End of Report Specimen Performing Organization Address City/State/ZIP Code Phon e Number [facility] [address] [place] [address] SERVICES [facility] [address] [place] [address] documented in this encounter Visit Diagnoses Not on filedocumented in this encounter
--- OUTSIDE RECORDS SUMMARY | 2022-07-18 00:33 | XMS_ITS | Encounter Summary ---
:1950 Author Organization [facility] Address [address] [place] [address] Care Team Providers Name Role Phone Unknown, Provider Primary Care Provider Encounter Details Date Type Department Care Team Description 07/23/2018 Results Only [facility] Ilia Stokes, DO [phone] [facility] [facility] [address] [place], [place] [phone] (Wo rk) Social History Tobacco Use Types Packs/Day Years Used Date Never Assessed Sex Assigned at Date Recorded Not on file documented as of this encounter Plan of Treatment Not on filedocumented as of this encounter Procedures Procedure Name Priority Date/Time Associated Diagnosis Comme [facility] SURGICAL PATHOLOGY Routine 07/23/2018 23:16 Resul ts for this EDT procedure are i n the results section. documented in this encounter Results SURGICAL PATHOLOGY (07/23/2018 23:16 EDT) Pathology Report: SURGICAL PATHOLOGY REPORT [facility] Reports generated via electronic interface contain tiana ginal data; LABORATORY however they are lacking the format of the original re port. SERVICES Caution should be taken when reading/interpreting unfo rmatted reports. Name: ? CARSON HEWITT ? Accession #: ? [id number] ? : ? 1950 (Age: 67) ??F ? Collect Date: ? 07/23/2018 ? Location: ? [facility] ? Receive Date: ? 07/23/20 18 ? Provider: ILIA STOKES DO Copy to: VIC MERCHANT MD ? Final Pathologic Diagnosis: COLON, ASCENDING, POLYP, BIOPSY: - Fragments of tubular adenoma. Document reviewed and electronically signed by: JAYCEE HERNANDES MD Report ??Date: 07/26/2018 21:04 By the signature above, the attending physician certif ies that he/she has personally conducted a gross and/or microscopic examin ation of the described specimens and rendered or confirmed the above diagnosi s. Specimen(s) Received: Ascending colon polyp Clinical History: Personal history colon polyps Gross Description: ? Received in formalin labelled with proper patient identification (initials W, V) and ascending colon p olyp are two montoya-pink tissue fragments (0.2 x 0.1 x 0.1 cm and 0.4 x 0.2 x 0.1 cm). Submitted in toto in 1 . DON Wilkerson (ASCP) 07/26/2018 7:52 AM End of Report Specimen Performing Organization Address City/State/ZIP Code Phon e Number [facility] [address] [place] [address] SERVICES documented in this encounter Visit Diagnoses Not on filedocumented in this encounter Care Teams Elementary Spanish Teacher Relationship Specialty Start Date End Date Unknown, Provider, PCP - General 07/23/18 07/25/18 documented as of this encounter
--- OUTSIDE RECORDS SUMMARY | 2022-07-18 00:33 | XMS_ITS | Encounter Summary ---
:[address] [facility] Address [address] [place] [address] Care Team Providers Name Role Phone Unknown, Provider Primary Care Provider Encounter Details Date Type Department Care Team Description 07/23/2018 Hospital Encounter [facility] - S Unknown, Pro Akua flowers MD [address] [facility] [phone] [place] [address] (Work) [phone] Social History Tobacco Use Types Packs/Day Years Used Date Never Assessed Sex Assigned at Date Recorded Not on file documented as of this encounter Discharge Disposition Disposition Code Departure Means Destination Home or Self [place] documented in this encounter Plan of Treatment Not on filedocumented as of this encounter Visit Diagnoses Not on filedocumented in this encounter Care Teams Ship Yard Electrical Person Relationship Specialty Start Date End Date Unknown, Provider, PCP - General 07/23/18 07/25/18 documented as of this encounter
--- OUTSIDE RECORDS SUMMARY | 2022-07-18 00:33 | XMS_ITS | Encounter Summary ---
:1950 Author Organization [facility] Address [address] [place] [address] Care Team Providers Name Role Phone Unavailable Primary Care Provider Unavailable Encounter Details Date Type Department Care Team Description 04/18/2003 Results Only [facility] - Yadira Jiménez son, Adrianna Saleh, CARBON ACCOUNTANT conversion [address] [place] [phone] (Wo rk) Social History Tobacco Use Types Packs/Day Years Used Date Never Assessed Sex Assigned at Date Recorded Not on file documented as of this encounter Plan of Treatment Not on filedocumented as of this encounter Procedures Procedure Name Priority Date/Time Associated Diagnosis Comme nts CYTOPATHOLOGY Routine 04/18/2003 0:00 EDT Results for this procedure are i n the results section . documented in this encounter Results CYTOPATHOLOGY (04/18/2003 0:00 EDT) Pathology Report: CYTOPATHOLOGY REPORT [facility] Reports generated via electronic interface contain tiana ginal data; however they are lacking the format of the original re port. Caution should be taken when reading/interpreting unfo rmatted reports. Name: ? CARSON HEWITT ? Accession #: ? [id number] : ? 1950 (Age: 52) ??F ?Collect Date: ? 03/27 Location: ? [facility] ? Receive Date : ? 04/21/2003 Provider: ?ADRIANNA DOTY CARBON ACCOUNTANT Copy to: ? Specimen/Source: ?ThinPrep Pap Test, Cervix/ Endocervix Last Menstrual Period: ? 04/08/03 ? SPECIMEN ADEQUACY ? Satisfactory for Evaluation - transformation zone component present GENERAL CATEGORIZATION ? Negative for Intraepithelial Lesion or Malignan cy INTERPRETATION ? Shift in avis present suggestive of bacterial vaginosis. ? Document reviewed and electronically signed by: ? FAUSTINO Philip(ASCP) ? Report Date: ??04/26/2003 11:55 End of Report Specimen Performing Organization Address City/State/ZIP Code Phon e Number [facility] [address] [place] [address] SERVICES [facility] [address] [place] [address] documented in this encounter Visit Diagnoses Not on filedocumented in this encounter
--- OUTSIDE RECORDS SUMMARY | 2022-07-18 00:33 | XMS_ITS | Clinical Summary ---
:1950 Author Organization [facility] Address [address] [place] [address] Care Team Providers Name Role Phone Fany Ortiz MD Primary Care Provider Social History Tobacco Use Types Packs/Day Years Used Date Never Assessed Sex Assigned at Date Recorded Not on file Plan of Treatment Health Maintenance Due Date Last Done Comments Fall Risk Screening 2013 Insurance Payer Benefit Plan Subscriber ID Effective Phone Address Typ e / Group Dates MVP MEDICARE MVP GOLD [id number] 2019-Prese [address] Medicare ANYWHERE nt [place], [employer] ge [facility] [id number] Care Teams Pneumatic System Conveyor Operator Relationship Specialty Start Date End Date Fany Ortiz MD PCP - General 07/26/[address] [place] [phone] (Kuyv)
--- OUTSIDE RECORDS SUMMARY | 2022-07-18 00:33 | XMS_ITS | Encounter Summary ---
:1950 Author Organization [facility] Address [address] [place] [address] Care Team Providers Name Role Phone Unavailable Primary Care Provider Unavailable Encounter Details Date Type Department Care Team Description 04/21/2001 Results Only [facility] - Yadira Jiménez son, Adrianna Saleh, SALON RECEPTIONIST conversion [address] [place] [phone] (Wo rk) Social History Tobacco Use Types Packs/Day Years Used Date Never Assessed Sex Assigned at Date Recorded Not on file documented as of this encounter Plan of Treatment Not on filedocumented as of this encounter Procedures Procedure Name Priority Date/Time Associated Diagnosis Comme nts CYTOPATHOLOGY Routine 04/21/2001 0:00 EDT Results for this procedure are i n the results section . documented in this encounter Results CYTOPATHOLOGY (04/21/2001 0:00 EDT) Pathology Report: CYTOPATHOLOGY REPORT [facility] Reports generated via electronic interface contain tiana ginal data; however they are lacking the format of the original re port. Caution should be taken when reading/interpreting unfo rmatted reports. Name: ? CARSON HEWITT ? Accession #: ? [id number] : ? 1950 (Age: 50) ??F ?Collect Date: ? 03/27 Location: ? [facility] ? Receive Date : ? 04/23/2001 Provider: ?ADRIANNA DOTY SALON RECEPTIONIST Copy to: ? Specimen/Source: ?ThinPrep Pap Test, Cervix Last Menstrual Period: ? 04/11/01 spotting ? SPECIMEN ADEQUACY ? Satisfactory for evaluation. GENERAL CATEGORIZATION ? Within Normal Limits ? Document reviewed and electronically signed by: ? FAUSTINO Philip(ASCP) ? Report Date: ??04/26/2001 14:08 End of Report Specimen Performing Organization Address City/State/ZIP Code Phon e Number [facility] [address] [place] [address] SERVICES [facility] [address] [place] [address] documented in this encounter Visit Diagnoses Not on filedocumented in this encounter
--- OUTSIDE RECORDS SUMMARY | 2022-07-18 00:33 | XMS_ITS | Encounter Summary ---
:[address] [facility] Address [address] [place] [address] Care Team Providers Name Role Phone Fany Ortiz MD Primary Care Provider Reason for Referral Referral (Routine/Next Available) - Closed Specialty Diagnoses / Procedures Referred By Contact Refer red To Contact Cardiovascular Disease Diagnoses SVT (supraventricular tachycardia) ([facility]) ([facility]) Geovany Braswell MD [address] [place] [address] Referral ID Status Reason Start Date Expiration Date Visits V isits Requested Authorized [id number] Closed Specialty 11/11/2019 1 1 Services Required Question Answer Reason for Request: paroxysmal SVT Comments Patient from [facility], seen in clinic at [facility] [place] 07/2019. Pt now wants to be re-referred to [facility] cardiology clinic s. The new insulator technician is Tj GONZALEZ MD . Unfortunately he is not on the list of p roviivelisse in the to provider box listed above. Reason for Visit Reason Onset Date Comments Other 11/09/2019 PT WOULD LIKE TO TRA SNFER BACK TO [facility] Encounter Details Date Type Department Care Team Description 11/09/2019 Telephone [facility] - Geovany Braswell [facility] er (PT WOULD LIKE TO [facility] Cardiology Clin ic MD Solitario TRASNFER BACK TO [facility]) [address] [place] [address] [address] [place] [address] (Wo rk) Social History Tobacco Use Types Packs/Day Years Used Date Never Assessed Sex Assigned at Date Recorded Not on file documented as of this encounter Miscellaneous Notes Telephone Encounter - Gerhard Breaux - 11/11/2019 1619 EST Last Braswell note and referral faxed to [facility] Attn: Dr. Yang elephone Encounter - Geovany Braswell MD - 11/11/2019 1112 EST Placed referral order. However, as the system did not allow to specify a provider, I am somewhat concerned about the likelihood for this order to get to the right place through [facility]. Please also fax a paper referral with my last clinic note from 07/2019 to Tj Maynard MD at the [facility] cardiology clinic. Thanks, JM elephone Encounter - Radha Hunter RN - 11/10/2019 1430 EST I am unclear why they would need a referral but would you be willing to do this? elephone Encounter - Jossy Rosas - 11/09/2019 1518 EST Pt called and would like to transfer back to [facility], Cards at [facility] told pt she needed a referral from [facility] in order to do that documented in this encounter Plan of Treatment Scheduled Referrals Name Type Priority Associated Order Schedule Diagnoses AMB CONS/FOLLOW UP Outpatient Referral Routine SVT Or dered: CARDIOLOGY (Supraventricular 11/11/2019 Tachycardia) (CMS-HCC) documented as of this encounter Visit Diagnoses Diagnosis SVT (supraventricular tachycardia) (HCC- CMS) (HCC) - Primary Other specified cardiac dysrhythmias documented in this encounter Care Teams Zoology Teacher Relationship Specialty Start Date End Date Fany Ortiz MD PCP - General 07/26/[address] [place] [phone] documented as of this encounter
--- NOTE | 2022-07-18 10:15 | DI.RAD_ITS ---
Exam(s) XR SHOULDER RT COMPLETE 2+V EXAM: XR SHOULDER RT COMPLETE 2+V CLINICAL HISTORY: RT ARM PAIN, M79.601. TECHNIQUE: 2D digital imaging was performed. Five views. COMPARISON: No exams were available for comparison FINDINGS: BONES: No acute fracture is present. No bony destructive lesion is seen. There is small degenerative cysts are noted in the humeral head. JOINTS: No dislocation present. Mild spurring at the AC joint. Glenohumeral joint space well mainta ined. Humeral head is normally position. SOFT TISSUE: Normal. IMPRESSION: Mild degenerative changes. DATA REPOSITORY: RADIATION DOSE DELIVERED:
== END ==
PROVIDERS: PCP Family Medicine; Visit Provider Family Medicine
DX: M19.011 Primary osteoarthritis, right shoulder (principal)
CPT/HCPCS: 73030

== ENCOUNTER → 2022-08-14 08:33 | Outpatient (BNVA) | payer MEDICARE, SELFPAY | PROVIDERS: PCP Family Medicine; Referring Provider Family Medicine; Visit Provider Student in an Organized Health Care Education/Training Program | DX: M75.81 Other shoulder lesions, right shoulder (principal) | CPT/HCPCS: 20610; 99213; J1040 ==

== ENCOUNTER → 2022-10-16 08:46 | Outpatient (BNVA) | payer MEDICARE, SELFPAY | PROVIDERS: PCP Family Medicine; Referring Provider Family Medicine; Visit Provider Student in an Organized Health Care Education/Training Program | DX: M75.81 Other shoulder lesions, right shoulder (principal) | CPT/HCPCS: 99213 ==

== ENCOUNTER → 2023-01-30 09:12 | Outpatient (BNVA) | payer MEDICARE, SELFPAY | PROVIDERS: PCP Family Medicine; Referring Provider Family Medicine; Visit Provider Student in an Organized Health Care Education/Training Program | DX: M75.81 Other shoulder lesions, right shoulder (principal) | CPT/HCPCS: 99213 ==

== ENCOUNTER 2023-02-11 13:08 | Outpatient (CLI) | payer MEDICARE, SELFPAY ==
--- NOTE | 2023-02-11 | DI.RAD_ITS ---
Exam(s) XR CHEST 2V PA LATERAL EXAM: XR CHEST 2V PA LATERAL CLINICAL HISTORY: COUGH X 1 WK, R05.8, HAS HAD PNEUMONIA ON SEVERAL OCCASIONS TECHNIQUE: 2D digital imaging was performed of the chest. Two images were obtained. PA and lateral views were obtained. COMPARISON: CT CHEST FOR PULMONARY EMBOLUS from 03/22/2018 CR CHEST 2 VIEWS PA,LAT from 03/26/2018 CR,XR XR CHEST 2V PA LATERAL from 07/17/2019 FINDINGS: MEDIASTINUM: Normal. HEART: Normal. PULMONARY VASCULATURE: Normal. LUNGS: No focal consolidating infiltrates. PLEURAL SPACE: No pleural effusion or pneumothorax. BONE:Within normal limits for the patient's age. OTHER FINDINGS:Normal. IMPRESSION: No acute pulmonary findings. DATA REPOSITORY: RADIATION DOSE DELIVERED:
== END 2023-02-11 13:28 ==
LOC: DI 13:08
PROVIDERS: PCP Family Medicine; Visit Provider Physician Assistant Medical
DX: R05.8 Other specified cough (principal)
CPT/HCPCS: 71046

== ENCOUNTER 2023-02-23 04:03 | Outpatient (CLI) | payer MEDICARE, SELFPAY ==
--- NOTE | 2023-02-23 | DI.MAMMO_ITS ---
Exam(s) MG MAMMO DIAGNOSTIC UNI EXAM: MG MAMMO DIAGNOSTIC UNI CLINICAL HISTORY: DIAGNOSTIC, 6 MO F/U, F/U ABNL MAMMO, R92.8. TECHNIQUE: Craniocaudal and mediolateral oblique Full Field Digital Mammography views of the right b reast with Computer Aided Diagnosis followed by Tomosynthesis. COMPARISON: Comparison is made with prior examinations. FINDINGS: Mammography/Tomosynthesis: Masses/Architectural Distortion: The nodule seen in the posterior medial right breast is unchanged as is the nodule seen in the inferior right breast on the MLO view. No new nodules or areas of archite ctural distortion are seen. Microcalcifictions: No suspicious pleomorphic-type are seen. Skin Thickening/Nipple Retraction: None. IMPRESSION: 1. No evidence of malignancy is noted. 2. A six-month follow-up right mammogram is recommended. The patient will then also have her a yearl y screening left mammogram at the same time period 3. The findings were discussed with the patient on the date of the examination. BI-RADS Category 3 - 6 month - Probably Benign Finding: Recommend follow-up imaging in 6 months Breast Density - Category B - Scattered areas of fibroglandular density Breast density Category C or D implies that the patient has dense breast tissue. Dense breast tissue can make it harder to find cancer on a mammogram. Dense breast tissue is also associated with an incr eased risk of breast cancer. This information about the result of the mammogram report was provided to the patient to raise their awareness. Use this report when you speak with the patient about their risks for breast cancer, which includes their family history. At that time, you may recommend additional screening tests (Ultrasoun d or MRI) as these tests may add significant information. A negative radiographic report should not delay biopsy if a dominant or clinically suspicious mass is present. Up to ten percent of cancers are not identified on mammography. A negative report may reinforce clinical impression. Adenosis and dense breasts may obscure an underlying neoplasm. False positive reports average 6 to 10%. Patient will receive a letter notifying them of these results.
== END 2023-02-23 04:23 ==
LOC: DI 04:05
PROVIDERS: PCP Family Medicine; Visit Provider Family Medicine
DX: R92.8 Other abnormal and inconclusive findings on diagnostic imaging of breast (principal)
CPT/HCPCS: 77061; 77065; G0279

== ENCOUNTER 2023-03-12 02:15 | Outpatient (CLI) | payer MEDICARE, SELFPAY ==
--- NOTE | 2023-03-12 07:45 | DI.MRI_ITS ---
Exam(s) MR UPPER JOINT RT WO EXAM: MR UPPER JOINT RT WO CLINICAL HISTORY: PAIN, rt rotator cuff tendinitis, m75.81. TECHNIQUE: Multiplanar multisequence MRI was performed. COMPARISON: CR XR SHOULDER RT COMPLETE 2+V from 07/18/2022 FINDINGS: The examination is limited due to patient motion artifact. BONES: There is no fracture or contusion pattern. JOINTS: Moderate degenerative changes are seen at the acromioclavicular joint. There are degenerativ e changes seen at the glenohumeral joint with articular cartilage thinning and joint space narrowing. TENDONS: Supraspinatus: There is thickening and intermediate signal seen in the supraspinatus tendon consisten t with tendinosis. There is high intensity signal seen in the supraspinatus tendon at its insertion site suggestive of a small intrasubstance tear. Infraspinatus: Unremarkable. Subscapularis: There is tendinosis of the subscapularis tendon. Teres Minor: Unremarkable. Biceps and [place]: Unremarkable. MUSCLES: Unremarkable. GLENOID LABRUM: There does appear to be some thickening of the superior labrum which likely reflects degeneration. No evidence of a tear. SOFT TISSUES: Unremarkable. LIGAMENTS: Unremarkable. OTHER: Subacromial and subdeltoid bursae are unremarkable. IMPRESSION: 1. Examination limited by patient motion artifact. 2. Tendinosis of the supraspinatus and subscapularis tendons with a question of a small intrasubstanc e supraspinatus tendon tear at its insertion site. 3. Probable degeneration of the superior labrum. In this patient, an MR arthrogram might be useful f or further evaluation of the labrum and paralabral structures. 4. Degenerative changes of the acromioclavicular and glenohumeral joints. DATA REPOSITORY:
== END 2023-03-12 02:35 ==
LOC: DI 02:16
PROVIDERS: PCP Family Medicine; Visit Provider Student in an Organized Health Care Education/Training Program
DX: M75.81 Other shoulder lesions, right shoulder (principal); M19.011 Primary osteoarthritis, right shoulder; M67.813 Other specified disorders of tendon, right shoulder
CPT/HCPCS: 73221

== ENCOUNTER → 2023-03-26 09:40 | Outpatient (BNVA) | payer MEDICARE, SELFPAY | PROVIDERS: PCP Family Medicine; Referring Provider Family Medicine; Visit Provider Student in an Organized Health Care Education/Training Program | DX: M75.81 Other shoulder lesions, right shoulder (principal); M19.011 Primary osteoarthritis, right shoulder | CPT/HCPCS: 99214 ==

== ENCOUNTER → 2023-04-02 13:08 | Outpatient (BNVA) | payer MEDICARE, SELFPAY | PROVIDERS: PCP Family Medicine; Referring Provider Family Medicine; Visit Provider Student in an Organized Health Care Education/Training Program | DX: M19.011 Primary osteoarthritis, right shoulder (principal) | CPT/HCPCS: 20611; J1040 ==

== ENCOUNTER 2023-05-08 10:57 | Outpatient (CLI) | payer MEDICARE, SELFPAY ==
--- NOTE | 2023-05-08 11:00 | RT.EKG_ITS ---
APPROVED REPORT Exam: Resting ECG Reason for Exam: svt Patient Location: O HR:94 bpm ECG Measurements Heart Rate 94 AXIS MA 185 P 59 QRSd 101 QRS 3 QT 350 T 47 QTc 438 Conclusion Sinus arrhythmia...V-rate 67-115, variation>10% Baseline wander in lead(s) V4
== END 2023-05-08 10:58 | disposition home or self-care (01) ==
LOC: DI.CARD 11:04
PROVIDERS: PCP Family Medicine; Visit Provider Internal Medicine Cardiovascular Disease
DX: I47.1 Supraventricular tachycardia (principal)
CPT/HCPCS: 93010

== ENCOUNTER → 2023-05-08 10:57 | Outpatient (BNVA) | payer MEDICARE, SELFPAY | PROVIDERS: PCP Family Medicine; Referring Provider Family Medicine; Visit Provider Internal Medicine Cardiovascular Disease | DX: I47.1 Supraventricular tachycardia (principal); I10 Essential (primary) hypertension | CPT/HCPCS: 93005; 99213 ==

== ENCOUNTER → 2023-07-13 15:17 | Outpatient (CLI) | payer MEDICARE, SELFPAY ==
--- NOTE | 2023-07-13 | DI.RAD_ITS ---
Exam(s) XR CHEST 2V PA LATERAL EXAM: XR CHEST 2V PA LATERAL CLINICAL HISTORY: CHEST CONGESTION, R09.89 TECHNIQUE: 2D digital imaging was performed. COMPARISON: CR XR CHEST 2V PA LATERAL from 02/11/2023 FINDINGS: HEART: Normal size. Aorta: Not dilated. PULMONARY VASCULATURE: Normal. LUNGS: Clear. PLEURAL SPACE: No pleural effusion or pneumothorax. BONE:Unremarkable for age. IMPRESSION: No acute abnormality. DATA REPOSITORY: RADIATION DOSE DELIVERED:
== END ==
PROVIDERS: PCP Family Medicine; Visit Provider Nurse Practitioner Family
DX: R09.89 Other specified symptoms and signs involving the circulatory and respiratory systems (principal)
CPT/HCPCS: 71046

== ENCOUNTER → 2023-08-18 02:30 | Outpatient (CLI) | payer MEDICARE, SELFPAY ==
--- NOTE | 2023-08-18 | DI.MAMMO_ITS ---
Exam(s) MAMMO DIAGNOSTIC BI EXAM: MAMMO DIAGNOSTIC BI CLINICAL HISTORY: ABNL MAMMO R92.8 RT BREAST 6 MO FU TECHNIQUE: Mammograms were interpreted according to the usual protocol including computer analysis w Workface CAD system, tomosynthesis and C-view imaging. COMPARISON: 2014 through 23 Feb 2023 FINDINGS: The breasts are composed of scattered fibroglandular densities, Breast Density category B. No suspicious masses or suspicious microcalcifications are seen. There has been no change in the are a of nodularity in the lower inner quadrant of right breast. No skin thickening or abnormal axillary lymph nodes are seen. There has been no significant change from prior exams. IMPRESSION: BI-RADS Cat 2 - Benign Findings Yearly screening mammography is recommended. Breast Density - Category B, scattered fibroglandular densities. A negative radiographic report should not delay biopsy if a dominant or clinically suspicious mass is present. Up to ten percent of cancers are not identified on mammography. A negative report may reinforce clinical impression. Adenosis and dense breasts may obscure an underlying neoplasm. False positive reports average 6 to 10%. Patient will receive a letter notifying them of these results.
== END ==
PROVIDERS: PCP Family Medicine; Visit Provider Family Medicine
DX: Z12.31 Encounter for screening mammogram for malignant neoplasm of breast (principal)
CPT/HCPCS: 77062; 77066; G0279

== ENCOUNTER 2024-03-17 11:39 | Emergency (ER) | payer MEDICARE, SELFPAY ==
[2024-03-17 11:48] VITALS: BP 175/111; PULSE 127; RESP 18; TEMP 36.6; O2SAT 96
[2024-03-17] MEDS: Ibuprofen 800 MG TAB PO (12:14)
[2024-03-17] MEDS: oxyCODONE 5 mg/Acetaminophen 325 mg TAB 1 TAB PO (12:14)
--- NOTE | 2024-03-17 12:35 | DI.RAD_ITS ---
Exam(s) XR SHOULDER RT COMPLETE 2+V EXAM: XR SHOULDER RT COMPLETE 2+V CLINICAL HISTORY: eval for fx in humerus. TECHNIQUE: 2D digital imaging was performed. COMPARISON: CR XR SHOULDER RT COMPLETE 2+V from 07/18/2022 FINDINGS: 3 views There is an and packed it and displaced fracture of the humeral head-neck. The humeral head is not d isplaced from the osseous glenoid fossa. No obvious fracture of the osseous glenoid. Clavicle intac t. Degenerative changes noted in the AC joint. No osseous lesions. IMPRESSION: Impacted/displaced fracture of the humeral head-neck. DATA REPOSITORY: RADIATION DOSE DELIVERED:
[2024-03-17 13:17] VITALS: PULSE 99; RESP 16; O2SAT 97
[2024-03-17 13:35] LABS: Abs Immature Grans 0.03 10^3/uL (0.0-0.06); Absolute Basophil Count 0.02 10^3/uL (0.0-0.2); Absolute Lymphocyte Count 1.02 10^3/uL (1.2-3.4); Absolute Monocyte Count 0.69 10^3/uL (0.1-0.8); Absolute Neutrophil Count 4.68 10^3/uL (1.2-6.7); Basophils % 0.3 %; Eosinophils % 1.5 %; HCT 38.3 % (36.0-46.0); HGB 12.2 g/dL (11.2-15.7); Immature Grans % 0.5 %; Lymphocytes % 15.6 %; MCH 30.9 pg (27.0-33.0); MCHC 31.9 % (32.0-36.0); MCV 97 fL (80-95); MPV 10.2 fL (8.0-11.0); Monocytes % 10.6 %; Neutrophils % 71.5 %; Platelet Count 204 10^3/uL (130-400); RBC 3.95 10^6/uL (3.93-5.22); RDW 14.2 % (11.7-14.6); RDW-SD 50.3 fL; WBC 6.54 10^3/uL (4.4-10.8)
[2024-03-17 13:51] LABS: ALT 19 U/L (14-59); AST 20 U/L (15-37); Acetaminophen 4 ug/mL (10-30); Albumin 3.4 g/dL (3.4-5.0); Alkaline Phosphatase 71 U/L (46-116); Anion Gap 4.7 mmol/L (3-11); BUN 21 mg/dL (7-18); Bilirubin, Total 0.6 mg/dL (0.2-1.0); CO2 33.3 mmol/L (21.0-32.0); CREATININE 0.9 mg/dL (0.55-1.02); Calcium 9.8 mg/dL (8.5-10.1); Chloride 101 mmol/L (98-107); Estimated GFR 66.67 (mL/min/1.73m2); Glucose 92 mg/dL (74-106); Potassium 3.8 mmol/L (3.5-5.1); Sodium 139 mmol/L (136-145); Total Protein 6.9 g/dL (6.4-8.2)
--- NOTE | 2024-03-17 14:29 | ED.GENADUL_ITS ---
Discharge Plan Disposition Patient Disposition: Home Condition: Good Discharge Details Clinical Impression: Closed right humeral fracture Primary Care Provider: Fany Ortiz ED Provider: Juvenal Seo Home Meds and New Rx's Prescriptions: New lidocaine [Lidoderm] 5 % adhesive patch,medicated 1 patch Topical Q24H Qty: 15 0RF oxycodone 5 mg tablet 5 mg PO BID PRNQty: 10 0RF No Action atorvastatin 20 mg tablet 20 mg PO DAILY multivitamin [Multiple Vitamins] 1 EACH tablet 1 ea PO DAILY aspirin [Adult Aspirin Regimen] 81 mg tablet,delayed release (DR/EC) 81 mg PO DAILY calcium carbonate-vit D3-min 600 mg calcium- 400 unit tablet 1 tab PO BID hydrochlorothiazide 12.5 mg tablet See Rx Instructions .ROUTE .COMPLEX Qty: 90 3RF Dose Instruction: TAKE 1 TABLET DAILY Rx Instructions: TAKE 1 TABLET DAILY bisoprolol fumarate 5 mg tablet See Rx Instructions .ROUTE .COMPLEX Qty: 90 3RF Dose Instruction: TAKE 1 TABLET DAILY Rx Instructions: TAKE 1 TABLET DAILY cholecalciferol (vitamin D3) [Vitamin D3] 400 UNIT tablet 400 unit PO DAILY oxycodone-acetaminophen 5-325 mg tablet 1 tab PO Q4H PRN Patient Comments: per he is giving her 5 tabs a day, only a 'few' pills left Discharge Instructions Instructions: Proximal Humerus Fracture (ED) Additional Instructions: At this time you have fractured your humerus. This will need to be evaluated by housing development specialist. Your appointment time is March 22 at 10:[address] Conteh please do not miss this appointment. Please take Tylenol as needed for pain. For breakthrough pain you can take the oxycodone which has been prescribed. Please apply the Lidoderm patches to your shoulder as prescribed. If you notice any worsening of your symptoms, or any new symptoms such as vomiting, diarrhea, fever, chills, shortness of breath, chest pain, numbness, weakness, or fainting , please return immediately to the emergency department for reevaluation. Please follow up with your primary care provider as soon as possible for reassessment and reevaluation. As always, it was a pleasure p articipating in your medical care today. Referrals: Fany Ortiz [Primary Care Provider] - Dom Conteh MD [ [facility] STAFF PHYSICIAN] - Vinod Wilkinson MD [ [facility] STAFF PHYSICIAN] - [facility] General Date/Time Provider Initiated Documentation: 03/17/24 11:54 . HPI Narrative: 73-year-old female with a past medical history of hypertension, high cholesterol, SVT, colon polyps, presents today for reassessment. She is a qfygw-wkic-pfckbzeo individual currently retired, 4 [place] and landed on her right arm. She went to the emergency department there and was noted to have a proximal humerus fracture. She was placed in a sling and appropriately discharged. Upon arrival back here today they contacted the orthopedic office who may have a relationship established with already, and it was recommended by the front office that they come to the ER for reimaging and assessment. Patient presents to the ER for further assessment. Patient denies any tingling in the upper extremity. She denies any headache or neck pain. She denies any dizziness lightheadedness. No other complaints at this time. No other modifying factors. Related Data Home Medications Medication Instructions Recorded Confirmed multivitamin (Multiple Vitamins 1 ea PO DAILY 01/10/13 03/17/24 tablet) cholecalciferol (vitamin D3) 10 400 unit PO DAILY 12/11/17 03/17/24 mcg (400 unit) tablet (Vitamin D3) atorvastatin 20 mg tablet 20 mg PO DAILY 12/27/19 03/17/24 aspirin 81 mg tablet,delayed 81 mg PO DAILY 06/24/22 03/17/24 release (Adult Aspirin Regimen) calcium carb-vit D3-minerals 600 1 tab PO BID 06/24/22 03/17/24 mg calcium-400 unit tablet hydrochlorothiazide 12.5 mg tablet See Rx Instructions .Route 08/25/23 03/17/24 .COMPLEX #90 tabs bisoprolol fumarate 5 mg tablet See Rx Instructions .Route 03/07/24 03/17/24 .COMPLEX #90 tabs lidocaine 5 % topical patch 1 patch topical Q24H #15 ea 03/17/24 (Lidoderm) oxycodone 5 mg tablet 5 mg PO BID PRN #10 tabs 03/17/24 oxycodone-acetaminophen 5 mg-325 1 tab PO Q4H PRN 03/17/24 03/17/24 mg tablet Previous Rx's Medication Instructions Recorded hydrochlorothiazide 12.5 mg tablet See Rx Instructions .Route 08/25/23 .COMPLEX #90 tabs bisoprolol fumarate 5 mg tablet See Rx Instructions .Route 03/07/24 .COMPLEX #90 tabs lidocaine 5 % topical patch 1 patch topical Q24H #15 ea 03/17/24 (Lidoderm) oxycodone 5 mg tablet 5 mg PO BID PRN #10 tabs 03/17/24 Allergies Allergy/AdvReac Type Severity Reaction Status Date / Time codeine Allergy Mild RASH Verified 03/17/24 11:52 erythromycin base AdvReac Intermediate NAUSEA/VOMI Verified 03/17/24 11:52 TING sertraline AdvReac Mild Diarrhea & Verified 03/17/24 11:52 Fatigue (50mg) metoprolol AdvReac Dizziness/L Verified 03/17/24 11:52 ightheade General Stated Complaint: Orthopedic XIOMY: 3 Review of Systems All systems reviewed & are unremarkable except as noted in HPI and below Exam Narrative Exam Narrative: 1.Const: Well-nourished, Well-developed, appearing stated age 2.Eyes: PERRL, no conjunctival injection, and symmetrical lids. 3.ENT: Atraumatic external nose and ears. Moist MM. Neck: Symmetric, trachea midline, No thyromegaly. 4.CVS: +S1/S2, No murmurs or gallops. Peripheral pulses 2+ and equal in all extremities. Brisk capillary refill in all extremities. 5.RESP: Unlabored respiratory effort. Clear to auscultation bilaterally. No wheezes rales or rhonchi 6.GI: Soft, Nontender/Nondistended, No hepatosplenomegaly. No guarding or rebound. 7.MSK: Right arm demonstrates mild bruising at the proximal humerus, tenderness in that area. Patient currently in a sling. No tenderness in the elbow hand or wrist. Radial pulse +2. Normal sensation. Good fountain brush assembler strength. Normal movement of the elbow and hand and wrist. 8.Skin: Warm, Dry. No rashes or lesions. 9.Neuro: auditing control clerk II-XII grossly intact. Sensation grossly intact, no focal neurologic deficits. 10.Psych: (AAO) x3. Appropriate mood and affect Course Vital Signs Vital signs: Vital Signs Temperature 36.6 C 03/17/24 11:48 Pulse 127 H 03/17/24 11:48 Respiratory Rate 18 03/17/24 11:48 Blood Pressure 175/111 H 03/17/24 11:48 Pulse Oximetry 96 03/17/24 11:48 Temperature 36.6 C 03/17/24 11:48 Temperature Source Skin 03/17/24 11:48 Pulse 99 H 03/17/24 13:17 Respiratory Rate 16 03/17/24 13:17 Respiratory Effort Normal 03/17/24 11:52 Blood Pressure 175/111 H 03/17/24 11:48 Blood Pressure Position Sitting 03/17/24 11:48 Pulse Oximetry 97 03/17/24 13:17 Oxygen Delivery Method Room Air 03/17/24 13:17 Oxygen Flow Rate 0 03/17/24 13:17 Pain Level 11 03/17/24 12:47 Lab/Test Results Lab/Test Results: Laboratory Tests Range/Units 03/17/24 13:25 WBC (4.4-10.8) 10^3/uL 6.54 RBC (3.93-5.22) 10^6/uL 3.95 Hgb (11.2-15.7) g/dL 12.2 Hct (36.0-46.0) % 38.3 MCV (80-95) fL 97 H MCH (27.0-33.0) pg 30.9 MCHC (32.0-36.0) % 31.9 L RDW (11.7-14.6) % 14.2 Plt Count (130-400) 10^3/uL 204 MPV (8.0-11.0) fL 10.2 Immature Gran % % 0.5 Neutrophils % % 71.5 Lymphocytes % % 15.6 Monocytes % % 10.6 Eosinophils % % 1.5 Basophils % % 0.3 Nucleated RBC % (0.0-0.3) % 0.0 Absolute Neutrophils (1.2-6.7) 10^3/uL 4.68 Absolute Lymphocytes (1.2-3.4) 10^3/uL 1.02 L Absolute Monocytes (0.1-0.8) 10^3/uL 0.69 Absolute Eosinophils (0.0-0.7) 10^3/uL 0.10 Absolute Basophils (0.0-0.2) 10^3/uL 0.02 Sodium (136-145) mmol/L 139 Potassium (3.5-5.1) mmol/L 3.8 Chloride (98-107) mmol/L 101 Carbon Dioxide (21.0-32.0) mmol/L 33.3 H Anion Gap (3-11) mmol/L 4.7 BUN (7-18) mg/dL 21 H Creatinine (0.55-1.02) mg/dL 0.9 Est GFR (CKD-EPI 2020) (mL/min/1.73m2) 66.67 Glucose (74-106) mg/dL 92 Calcium (8.5-10.1) mg/dL 9.8 Total Bilirubin (0.2-1.0) mg/dL 0.6 AST (15-37) U/L 20 ALT (14-59) U/L 19 Alkaline Phosphatase (46-116) U/L 71 Total Protein (6.4-8.2) g/dL 6.9 Albumin (3.4-5.0) g/dL 3.4 Acetaminophen (10-30) ug/mL 4 Medical Decision Making 73-year-old female with a past medical history of hypertension, high cholesterol, SVT, colon polyps, presents today for reassessment. She is a ojnis-rxjb-jqhfidug individual currently retired, 4 days ago [place] when she tripped and landed on her right arm. She went to the emergency department there and was noted to have a proximal humerus fracture. She was placed in a sling and appropriately discharged. Upon arrival back here today they contacted the orthopedic office who may have a relationship established with already, and it was recommended by the front office that they come to the ER for reimaging and assessment. Patient presents to the ER for further assessment. Patient denies any tingling in the upper extremity. She denies any headache or neck pain. She denies any dizziness lightheadedness. No other complaints at this time. No other modifying factors. Exam demonstrates tenderness at the proximal humerus, normal neurovascular exam, no other tenderness or abnormality for the head neck or chest elbow or forearm. Repeat x-ray was ordered and shows evidence of impacted displaced fracture of the humeral head/neck. No prior for comparison from [facility]. We did contact the orthopedic surgeon on-call Dr. Conteh, he reviewed the imaging and recommended continued sling and close follow-up for further discussion. We contacted the office and established an appointment for the patient this Thursday on the at 10:15 AM. Patient will be given a few oxycodones for home use. Recommend stopping the Percocets and just using the oxycodone's instead only as needed for breakthrough pain. Will give prescription for Lidoderm patch. Discussed red flags for which to return. I have extensively reviewed the treatment plan and discharge instructions with the patient and their family. I have addressed all patient concerns at this time. The patient and family was made aware of what symptoms to monitor for that would warrant a return to the emergency department. Discussed the plan with the patient and family, they demonstrate verbal understanding and agreement with our assessment and plan at this time. The documentation in this chart was dictated using [employer] dictation software. Please excuse any dictation errors. FINDINGS: 3 views There is an and packed it and displaced fracture of the humeral head-neck. The humeral head is not displaced from the osseous glenoid fossa. No obvious fracture of the osseous glenoid. Clavicle intact. Degenerative changes noted in the AC joint. No osseous lesions. IMPRESSION: Impacted/displaced fracture of the humeral head-neck. Quality:SDOH Health Related Social Needs: No Data to Display PFSH All Active Problems Closed right humeral fracture (Acute) Arthritis of right shoulder region (Acute) POCUS INJECTION 04/02/23 Right rotator cuff tendonitis (Acute) Personal history of colonic polyps (Acute) SVT (supraventricular tachycardia) (Acute) Diarrhea (Acute) Hypertension (Acute) Pneumonia (Acute) Hyperlipidemia (Chronic) Obstructive sleep apnea (Chronic) Discharge planning issues (Acute) Medical History Tubular adenoma of colon (07/23/18) Dr Downey, repeat colo in five years Abnormal colonoscopy (07/23/18) Dr Downey, tubular adenoma, repeat in 5 years History of colon polyps Dyspareunia in female SVT (supraventricular tachycardia) Overweight Hyperlipemia Surgical History History of ankle surgery History of tonsillectomy History of knee surgery Social History Smoking/Tobacco Use Status: Never Smoking risk assessment performed?: Yes Alcohol Intake: current Alcohol Intake frequency: a few times a month Alcohol type: wine Drug use: Never What is your relationship status?: Panel score (0-1 are the most socially isolated patients): 1 What type of physical activity do you participate in: none Do you feel safe at home: Yes Do you feel safe in your relationship?: Yes
[2024-03-17 15:15] VITALS: BP 144/79; PULSE 108; RESP 18; O2SAT 97
== END 2024-03-17 15:19 | disposition home or self-care (01) ==
PROVIDERS: Emergency Provider Student in an Organized Health Care Education/Training Program; PCP Family Medicine
DX: S42.251A Displaced fracture of greater tuberosity of right humerus, initial encounter for closed fracture (principal); M79.601 Pain in right arm; W18.00XA Striking against unspecified object with subsequent fall, initial encounter
CPT/HCPCS: 36415; 80053; 99283; 73030; 80329; 85025

== ENCOUNTER → 2024-03-22 10:19 | Outpatient (BNVA) | payer MEDICARE, SELFPAY | PROVIDERS: PCP Family Medicine; Referring Provider Family Medicine; Visit Provider Student in an Organized Health Care Education/Training Program | DX: S42.291A Other displaced fracture of upper end of right humerus, initial encounter for closed fracture (principal); W01.0XXA Fall on same level from slipping, tripping and stumbling without subsequent striking against object, initial encounter | CPT/HCPCS: 99214 ==

== ENCOUNTER 2024-04-05 15:35 | Outpatient (CLI) | payer MEDICARE, SELFPAY ==
--- NOTE | 2024-04-05 14:15 | DI.RAD_ITS ---
Exam(s) XR SHOULDER RT COMPLETE 2+V EXAM: XR SHOULDER RT COMPLETE 2+V CLINICAL HISTORY: F/U FRACTURE. TECHNIQUE: 2D digital imaging was performed. COMPARISON: CR XR SHOULDER RT COMPLETE 2+V from 03/17/2024 FINDINGS: Two views. Appearance of the impacted humeral head-neck fracture is unchanged from 03/17/2024. No further displ acement. No dislocation of the glenohumeral joint. Subacromial space is not diminished. No additio nal fractures evident. IMPRESSION: Stable appearance when compared to 03/17/2024. DATA REPOSITORY: RADIATION DOSE DELIVERED:
== END 2024-04-05 15:36 | disposition home or self-care (01) ==
PROVIDERS: PCP Family Medicine; Visit Provider Student in an Organized Health Care Education/Training Program
DX: S42.201D Unspecified fracture of upper end of right humerus, subsequent encounter for fracture with routine healing; X58.XXXD Exposure to other specified factors, subsequent encounter
CPT/HCPCS: 99213; 73030

== ENCOUNTER → 2024-05-06 10:52 | Outpatient (BNVA) | payer MEDICARE, SELFPAY | PROVIDERS: PCP Family Medicine; Visit Provider Internal Medicine Cardiovascular Disease | DX: I47.10 Supraventricular tachycardia, unspecified (principal); I10 Essential (primary) hypertension | CPT/HCPCS: 99213 ==

== ENCOUNTER 2024-05-10 15:12 | Outpatient (CLI) | payer MEDICARE, SELFPAY ==
--- NOTE | 2024-05-10 13:45 | DI.RAD_ITS ---
Exam(s) XR SHOULDER RT COMPLETE 2+V EXAM: XR SHOULDER RT COMPLETE 2+V INDICATION: F/U FRACTURE. COMPARISON: CR XR SHOULDER RT COMPLETE 2+V from 03/17/2024 CR XR SHOULDER RT COMPLETE 2+V from 04/05/2024 TECHNIQUE: 2D digital imaging was performed. Two views. FINDINGS: There is apparent increased displacement at the humeral neck fracture with greater lateral displacem ent of the humeral shaft with respect to the head. There is also increased inferior subluxation of the humeral head with respect to the glenoid. DATA REPOSITORY: RADIATION DOSE DELIVERED:
== END 2024-05-10 15:13 | disposition home or self-care (01) ==
LOC: DIORS 15:12
PROVIDERS: PCP Family Medicine; Referring Provider Family Medicine; Visit Provider Student in an Organized Health Care Education/Training Program
DX: S42.201D Unspecified fracture of upper end of right humerus, subsequent encounter for fracture with routine healing (principal); X58.XXXD Exposure to other specified factors, subsequent encounter
CPT/HCPCS: 99213; 73030

== ENCOUNTER 2024-06-21 15:53 | Outpatient (CLI) | payer MEDICARE, SELFPAY ==
--- NOTE | 2024-06-21 13:56 | DI.RAD_ITS ---
Exam(s) XR SHOULDER RT COMPLETE 2+V EXAM: XR SHOULDER RT COMPLETE 2+V CLINICAL HISTORY: F/U FRACTURE. TECHNIQUE: 2D digital imaging was performed. Five views. COMPARISON: CR XR SHOULDER RT COMPLETE 2+V from 05/10/2024 FINDINGS: BONES: Stable alignment of proximal humeral fracture. No bony destructive lesion is seen. JOINTS: No dislocation present. Humeral head is now normally aligned with the glenoid. SOFT TISSUE: Normal. IMPRESSION: Stable fracture alignment. DATA REPOSITORY: RADIATION DOSE DELIVERED:
== END 2024-06-21 15:54 | disposition home or self-care (01) ==
LOC: DIORS 15:53
PROVIDERS: PCP Family Medicine; Visit Provider Student in an Organized Health Care Education/Training Program
DX: S42.201D Unspecified fracture of upper end of right humerus, subsequent encounter for fracture with routine healing (principal); X58.XXXD Exposure to other specified factors, subsequent encounter
CPT/HCPCS: 99213; 73030

== ENCOUNTER 2024-07-14 01:42 | Outpatient (CLI) | payer MEDICARE, SELFPAY ==
--- NOTE | 2024-07-14 | DI.DEXA_ITS ---
Exam(s) XR DEXA BONE DENSITY W/WO STANLEY EXAM: XR DEXA BONE DENSITY W/WO STANLEY CLINICAL HISTORY: ASYMPTOMATIC MENOPAUSAL STATE Z78.0 TECHNIQUE: Just [employer] C densitometer analysis of left hip, lumbar spine and left forearm. Lat eral survey image of the thoracic and lumbar spine was not performed. The patient was unable to lie on her side. COMPARISON: DX STANLEY from 08/07/2008 DX DEXA BONE DENSITY WITH STANLEY from 05/23/2014 CT CHEST FOR PULMONARY EMBOLUS from 03/22/2018 FINDINGS: Bone mineral density measurements of the lumbar spine correspond to a total T-score of -1.9, in the osteopenic range. This represents a 4 percent increase when compared to 2013 is not significantly ch anged from 2007. Bone mineral density measurements of the left hip correspond to a total T-score of -1.7. The femora l neck T-score is -2.5, in the osteoporotic range. This represents a 9.6 percent decrease from 2013 and a 12.2 percent decrease from 2007.. Theleft forearm bone mineral density measurements correspond to a T-score of the distal 3rd of -2.8, in the osteoporotic range. This represents an 8.3 percent decrease when compared with 2013. The fo rearm was not analyzed in 2007.. IMPRESSION: Osteopenia of the lumbar spine. Osteoporosis of the hip and forearm.
== END 2024-07-14 02:02 ==
LOC: DI 01:42
PROVIDERS: PCP Family Medicine; Visit Provider Family Medicine
DX: Z78.0 Asymptomatic menopausal state (principal); Z13.820 Encounter for screening for osteoporosis; M85.89 Other specified disorders of bone density and structure, multiple sites
CPT/HCPCS: 77080

== ENCOUNTER → 2024-08-25 09:58 | Outpatient (BNVA) | payer MEDICARE, SELFPAY | PROVIDERS: PCP Family Medicine; Referring Provider Family Medicine; Visit Provider Physical Therapy Assistant | DX: Z12.11 Encounter for screening for malignant neoplasm of colon (principal); Z86.0100 Personal history of colon polyps, unspecified ==

== ENCOUNTER 2024-09-09 09:09 | Day surgery (SDC) | payer MEDICARE, SELFPAY ==
--- NOTE | 2024-09-08 21:18 | W.COLOREPORT ---
Date of service: 09/09/24 Time of Service: 11:30 Colonoscopy Report Date of procedure: 09/09/24 Pre-op diagnosis general: adenomatous polyps Post-op diagnosis procedure note: other (Adenomatous polyps and severe diverticula) Surgeon: Court Perdomo Anesthesia Type: General:No Airway Estimated blood loss (mL): 1 Pathology: other Complications: None Disposition: same day Prep: Miralax/Dulcolax Retraction Time: 9 Procedure Description: After informed consent was obtained, explaining risks of the procedure, including but not limits to: bleeding, infections, complications of anesthesia, perforations (which may require antibiotics and /or surgery and stay in the hospital), and abdominal pain/cramping. The patient was taken to the procedure room and placed in a left decubitous position. Monitors were applied and a time out was done. The patients name, date of , procedure, allergies to medications and metal in their body was reviewed. The patient was then sedated. Once sedated and comfortable a rectal exam was done. External exam minimal. No acute thrombosis or inflammation. Internal exam revealed a normal sphincter tone and no palpable masses. The previously lubricated Olympus scope was then introduced (see RN notes for scope number) and retrofelexed. Grade 2 internal hemorrhoids were identified. The scope was then advanced to the cecum without difficulty. The TI and appendiceal orifice were identified. The scope was then slowly retracted over 9 minutes back into the rectum. Polyps: A flat, .5cm polyp was found in the rectum. This was removed with a cold biting forceps. All of the specimen was retrieved. This will be sent to pathology. There is no bleeding noted from the polypectomy site. Diverticula: pt had a large amount amount of large mouthed diverticula do carry all the way over to the transverse colon there were no signs of active bleeding or infection. The mucosa is pink and healthy w/ a normal vascular pattern. The scope was removed, and the patient was woken up and taken back to Same day surgery in stable condition. The patient tolerated the procedure well and there were no immediate complications. Follow up: No further screening colonoscopies are recommended, unless they develop changes in bowel habits or other new gastrointestinal complaints. [place] Bowel Prep [place] Bowel Prep Right Colon: 3 Left Colon: 3 Transverse Colon: 3 Total Score: 9
--- NOTE | 2024-09-08 21:20 | PDOC.DSDIS_ITS ---
Date of service: 09/09/24 Time of Service: 11:25 Discharge Plan Disposition Patient Disposition: Home Condition: Good Discharge Details Reason For Visit: colon scope Attending Provider: Court Perdomo Primary Care Provider: Fany Ortiz Home Meds and New Rx's Prescriptions: Continued atorvastatin 20 mg tablet 20 mg PO DAILY alendronate 70 mg tablet 70 mg PO QWEEK multivitamin [Multiple Vitamins] 1 EACH tablet 1 ea PO DAILY aspirin [Adult Aspirin Regimen] 81 mg tablet,delayed release (DR/EC) 81 mg PO DAILY calcium carbonate-vit D3-min 600 mg calcium- 400 unit tablet 1 tab PO BID bisoprolol fumarate 5 mg tablet See Rx Instructions .ROUTE .COMPLEX Qty: 90 3RF Dose Instruction: TAKE 1 TABLET DAILY Rx Instructions: TAKE 1 TABLET DAILY hydrochlorothiazide 12.5 mg tablet See Rx Instructions .ROUTE .COMPLEX Qty: 90 3RF Dose Instruction: TAKE 1 TABLET DAILY Rx Instructions: TAKE 1 TABLET DAILY cholecalciferol (vitamin D3) [Vitamin D3] 400 UNIT tablet 400 unit PO DAILY Discontinued bisacodyl [Dulcolax (bisacodyl)] 5 mg tablet,delayed release (DR/EC) 5 mg PO ONCE Qty: 4 0RF Rx Instructions: Take per colonoscopy instructions provided by ordering providers office polyethylene glycol 3350 17 gram/dose powder 17 g PO ONCE Qty: 238 0RF Rx Instructions: Take per colonoscopy instructions provided by ordering providers office Discharge Instructions Additional Instructions: [facility] Colonoscopy Post- Op Instructions Instructions for Everyone who is given Anesthesia: For your safety, please do the following for the next twenty-four (24) hours: *Do Not operate a motor vehicle (car, truck, motorcycle, etc.) *Do Not drink alcoholic beverages or use any recreational drugs for the first 24 hours or while taking pain medications. The medications in your body may have a reaction that can be dangerous. *Do Not make any important decisions or sign any important papers. Findings: X 1 very small polyp Severe diverticula-make sure you are moving your bowels on a regular basis and you are not straining to go to the bathroom. If you find that you are having problems with constipation or straining, then it is recommended you start a fiber product daily such as Metamucil or Citrucel Follow up: No further screening colonoscopies are recommended at this time, Of course, you should continue to have a yearly physical exam including a rectal exam. If you should ever notice any pain or difficulty having a bowel movement, blood in the stool, unexplained weight loss, or change in your bowel habits, please contact your health provider 1. No lifting over 20 pounds or strenuous activity for the first 24 hours after your procedure. After 24 hours there are no restrictions on your activity but you may feel fatigued for a few days. 2. After you arrive home you may have a light meal and return to your normal diet as you can tolerate it without feeling sick to your stomach. 3. You may have a bloated, gaseous feeling in your belly (abdomen) after a colonoscopy. Passing gas and belching will help. Walking or lying down on your left side with your knees flexed may relieve the discomfort. Call the office at [phone] (Office) or [phone] (Hospital) right away if you notice any of the following: a.Vomiting of blood or ?coffee ground stools?. b.Rectal bleeding 1Tbsp, blood clots or continuous bleeding. c.Severe belly (abdominal) pain. d.A hard distended belly (abdomen) and an inability to pass gas. 4. Please don?t expect to have a normal BM (bowel movement) for 2-3 days after your procedure. 5. If there are questions regarding the findings of your procedure, please contact your doctor 6. If you are unable to contact your doctor with a problem, contact the hospital at [phone]. 7. Continue all your regular medications unless directed otherwise. I understand the above instructions and have no questions. Signature of Patient or Adult Escort Name of Responsible Adult Escort Signature of Nurse Date/Time Stand Alone Forms: Anesthesia Discharge Inst., Elizabeth Carlisle ([facility]U) Activity:: see above Diet:: see above Discharge Orders Discharge Orders: Discharge Order (Routine); Ordered 09/09/24 Ordered By: Court Perdomo DS: Diagnosis Discharge Diagnosis (1) Adenomatous colon polyp: Status: Acute Asessment and Plan: The patient is seen and examined after their colonoscopy.? The patient has been able to pass gas.? They are not having abdominal pain.? They have been able to tolerate liquids and a snack.? They do not have any nausea or vomiting.? They are not having any chest pain or shortness of breath.??? They are not having any rectal bleeding. Their vital signs have been stable-see nursing notes. We discussed findings during their colonoscopy, and any biopsies that were done/polyps that were removed. The patient will be sent a letter with any biopsy results, and when to repeat the colonoscopy.-see discharge instructions. Patient was given explicit instructions to follow-up regarding colonoscopy-refer to discharge instructions.? We reviewed resumption of medications. Patient verbalized understanding and discharged in stable and satisfactory condition- See nursing notes. (2) Hypertension: Status: Acute (3) SVT (supraventricular tachycardia): Status: Acute (4) Hyperlipidemia: Status: Chronic (5) Diarrhea: Status: Acute (6) Obstructive sleep apnea: Status: Chronic (7) SVT (supraventricular tachycardia): (8) Hyperlipemia: (9) Overweight: (10) Diverticula of colon: Status: Acute
[2024-09-09 09:24] VITALS: BP 138/81; PULSE 100; RESP 18; TEMP 36.3; O2SAT 97
[2024-09-09] MEDS: Normal Saline Flush 10 ML SYR IV (09:43)
--- NOTE | 2024-09-09 10:41 | W.ANESPRE ---
General Info Date of Service Date Performed: 09/09/24 Height: 5 ft 7 in Weight: 85.8 kg Body Mass Index (BMI): 29.6 Surgical Procedure: Operation Date: 09/09/24 10:20 Proposed Procedure Side Surgeon emilia Perdomo, DO Meds Allergies and Home Medications Allergies Allergy/AdvReac Type Severity Reaction Status Date / Time codeine Allergy Mild RASH Verified 09/09/24 09:19 erythromycin base AdvReac Intermediate NAUSEA/VOMI Verified 09/09/24 09:19 TING sertraline AdvReac Mild Diarrhea & Verified 09/09/24 09:19 Fatigue (50mg) metoprolol AdvReac Dizziness/L Verified 09/09/24 09:19 ightheade Home Medication ?Medication ?Instructions ?Recorded multivitamin (Multiple Vitamins 1 ea PO DAILY 01/10/13 tablet) cholecalciferol (vitamin D3) 10 400 unit PO DAILY 12/11/17 mcg (400 unit) tablet (Vitamin D3) atorvastatin 20 mg tablet 20 mg PO DAILY 12/27/19 aspirin 81 mg tablet,delayed 81 mg PO DAILY 06/24/22 release (Adult Aspirin Regimen) calcium 600 mg (as carbonate)-vit 1 tab PO BID 06/24/22 D3 10 mcg (400 unit)-minerals tablet bisoprolol fumarate 5 mg tablet See Rx Instructions .Route 03/07/24 .COMPLEX #90 tabs alendronate 70 mg tablet 70 mg PO QWEEK 08/25/24 hydrochlorothiazide 12.5 mg tablet See Rx Instructions .Route 08/25/24 .COMPLEX #90 tabs Current Visit Medications: Current Medications Generic Name Dose Route Start Last Admin Trade Name Teoq PRN Reason Stop Dose Admin Hyoscyamine Sulfate 0.125 mg 09/09/24 04:59 Hyoscyamine 0.125 Mg Sl/Oral/Chew SL 10/09/24 04:58 DIRECTED PRN IV Miscellaneous Supplies 1 each 09/09/24 06:00 Iv Access IV 09/09/24 23:59 DIRECTED DEBORA Ondansetron HCl 4 mg 09/09/24 04:59 Ondansetron 4 Mg/2 Ml Vial IVP 10/09/24 04:58 Q4H PRN PRN Nausea / Vomiting Sodium Chloride 0 ml 09/09/24 06:00 09/09/24 09:43 Normal Saline Flush 10 Ml Syr IV 09/09/24 23:59 10 ml PRN PRN Administration Sodium Chloride 0 ml 09/09/24 06:00 Normal Saline 10 Ml Vial IJ 09/09/24 23:59 DIRECTED PRN Sterile Water 0 ml 09/09/24 06:00 Water,Injection,Sterile 10 Ml Vial IJ 09/09/24 23:59 DIRECTED PRN PFSH Active Problems Active Problems: Problem Status Onset Code Adenomatous colon polyp Acute D12.6 Closed fracture of right proximal humerus Acute 03/14/24 S42.201A Arthritis of right shoulder region Acute M19.011 Right rotator cuff tendonitis Acute M75.81 Personal history of colonic polyps Acute Z86.010 SVT (supraventricular tachycardia) Acute I47.1 Diarrhea Acute R19.7 Hypertension Acute I10 Pneumonia Acute J18.9 Hyperlipidemia Chronic E78.5 Obstructive sleep apnea Chronic G47.33 Discharge planning issues Acute Z02.9 Medical History Medical History Tubular adenoma of colon (07/23/18) Dr Downey, repeat colo in five years Abnormal colonoscopy (07/23/18) Dr Downey, tubular adenoma, repeat in 5 years History of colon polyps Dyspareunia in female SVT (supraventricular tachycardia) Overweight Hyperlipemia Surgical History Surgical History History of ankle surgery History of tonsillectomy History of knee surgery Tobacco Smoking/Tobacco Use Status: Never Alcohol Alcohol Intake: current Alcohol intake frequency: a few times a month Alcohol type: wine Substance Use Substance use: Never Substance use type: does not use Vital Signs and Lab Results Vital Signs Most Recent Vital Signs in EMR: Most Recent Vital Signs Temp Pulse Resp BP Pulse Ox 36.3 C L 100 H 18 138/81 97 09/09/24 09:24 09/09/24 09:24 09/09/24 09:24 09/09/24 09:24 09/09/24 09:24 Lab Results Blood Type / Crossmatch: No Data to Display Complete Blood Count: No Data to Display Complete Metabolic Panel: No Data to Display Liver Function Panel: No Data to Display Coagulation Panel: No Data to Display Cardiac Panel: No Data to Display Arterial Blood Gas: No Data to Display Venous Blood Gas: No Data to Display Pancreas Panel: No Data to Display Thyroid Panel: No Data to Display Infectious Disease: No Data to Display Blood Cultures: No Data to Display Toxicology Panel: No Data to Display Imaging and Studies Imaging and Studies Study information below may be from another EMR and interpreted by another provider. Please see original notes in EMR for more complete details. EKG Summary: 05/08/23: Exam: Resting ECG Reason for Exam: svt Patient Location: O HR:94 bpm ECG Measurements Heart Rate 94 AXIS MO 185 P 59 QRSd 101 QRS 3 QT 350 T47 QTc 438 Conclusion Sinus arrhythmia...V-rate 67-115, variation>10% Baseline wander in lead(s) V4 Echocardiogram Summary: 08/25/19: Conclusion Left Ventricle : The left ventricle is normal size. The left ventricular ejection fraction is within the normal range. There is normal left ventricular wall thickness. There is normal LV segmental wall motion. LVEF is 65-70%. Right Ventricle : The right ventricle is normal size. The right ventricular systolic function is normal. Atria : The left atrium size is normal. The right atrium size is normal. Aortic Valve : The Aortic valve is sclerotic. Aortic valve is probably trileaflet. Trace aortic regurgitation. There is no aortic valvular stenosis. Mitral Valve : The mitral valve is normal in structure. Mild mitral regurgitation. No evidence of mitral valve stenosis. Tricuspid Valve : The tricuspid valve is normal in structure. Mild tricuspid regurgitation. Pulmonic Valve : Pulmonic valve is not well visualized. Great Vessels : IVC is normal in size and collapses >50% with inspiration. RVSP is estimated to be between 22-25 mmHg. There is no prior echocardiogram available for comparison Anesthesia Assessment and Plan Anesthesia History Personal History: No History of Anesthesia Complications Family History: No Family History of Anesthesia Complications Exercise Tolerance Exercise Tolerance: Metabolic Equivalents>4 Cardiac & Pulmonary Exam Cardiac Exam: Normal S1/S2 Heart Sounds Pulmonary Exam: Clear Bilateral Breath Sounds Implantable Cardiac Device Does patient have a Pacemaker or an ICD?: No Airway Exam Known Difficult Airway: No Mallampati Class: 2 Mouth Opening: Normal (> 3cm) Thyromental Distance: Greater than 3 cm Neck Range of Motion: Full ROM Neck Circumference: Normal Teeth Condition: Normal Dentition ASA Classification ASA Score: ASA 2 Emergency Case?: No NPO Status NPO Status: NPO Clears >2 hours, Solids >8 hours Anesthesia Plan Resuscitation Status: Full Code Anesthesia Technique: General Anesthesia Airway Planned: Natural Airway Monitors Used: Standard Monitors
[2024-09-09 10:45] VITALS: BMI 29.6
--- NOTE | 2024-09-09 11:15 | BOWEL_PTH ---
PATIENT: Juanita Nunez LOC: [facility] U#:[id number] AGE/SX: 74/F ROOM: RE09/09/[address]: Court Perdomo : 1950 BED: DIS: 09/09/2024 SPEC #: [id number] RECD: 09/09/24 13:13 STATUS: KAY REQ #: [id number] CHICHI: 09/09/24 11:[address]: Court Perdomo DEPT: Surgical Specimen RECD BY: Pat Rose ENTERED: 09/09/24 13:13 SP TYPE: Bowel OTHR DR: Fany Ortiz Tissues: 1 - BIOPSY BOWEL Procedures: GROSS AND MICRO LEVEL 4 Comments: [id number]
[2024-09-09 11:21] VITALS: BP 138/81; PULSE 77; RESP 16; TEMP 36; O2SAT 97
[2024-09-09 11:53] VITALS: BP 113/57; PULSE 76; RESP 16; TEMP 36.2; O2SAT 97
--- NOTE | 2024-09-09 16:23 | W.ANESPOSTOP ---
Postoperative Evaluation Date, Time and Location Date Performed: 09/09/24 Time Performed: 11:25 Patient Location: Day Surgery Unit Vital Signs Most Recent Imported Vital Signs: Most Recent Vital Signs Temp Pulse Resp BP Pulse Ox 36.2 C L 76 16 113/57 L 97 09/09/24 11:53 09/09/24 11:53 09/09/24 11:53 09/09/24 11:53 09/09/24 11:53 Pain Score Most Recent Pain Score: Most Recent Pain Score Pain Level 0 09/09/24 11:53 Assessment Mental Status: Awake (Alert & Oriented to Patient Baseline) Airway and Respiratory Function: Patent airway with normal (patient baseline) respiratory exam Cardiovascular Function: Hemodynamically Stable Hydration Status: Adequately Hydrated Nausea & Vomiting: No Nausea or Vomiting Pain: Pt. Denies Any Pain Peripheral Nerve Block: Patient did not receive a nerve block
== END 2024-09-09 12:29 | disposition home or self-care (01) ==
LOC: SUR 09:10
PROVIDERS: PCP Family Medicine; Visit Provider Surgery
PROC: 0DJD8ZZ Inspection of Lower Intestinal Tract, Via Natural or Artificial Opening Endoscopic (ICD-10-PCS; CPT 45378; principal; 2024-09-09 10:15)
DX: Z12.11 Encounter for screening for malignant neoplasm of colon (principal); I10 Essential (primary) hypertension; K57.30 Diverticulosis of large intestine without perforation or abscess without bleeding; G47.33 Obstructive sleep apnea (adult) (pediatric); R19.7 Diarrhea, unspecified; K62.1 Rectal polyp
CPT/HCPCS: 45380; 88305; J2003; J2704

== ENCOUNTER 2024-09-13 14:55 | Outpatient (CLI) | payer MEDICARE, SELFPAY ==
--- NOTE | 2024-09-13 13:00 | DI.RAD_ITS ---
Exam(s) XR SHOULDER RT COMPLETE 2+V EXAM: XR SHOULDER RT COMPLETE 2+V INDICATION: F/U FRACTURE. COMPARISON: CR XR SHOULDER RT COMPLETE 2+V from 05/10/2024 CR XR SHOULDER RT COMPLETE 2+V from 06/21/2024 TECHNIQUE: 2D digital imaging was performed. Two views. FINDINGS: Stable alignment of proximal humeral fracture. There has been some increased healing at the fracture . DATA REPOSITORY: RADIATION DOSE DELIVERED:
== END 2024-09-13 14:56 | disposition home or self-care (01) ==
LOC: DIORS 14:55
PROVIDERS: PCP Family Medicine; Visit Provider Student in an Organized Health Care Education/Training Program
DX: S42.201D Unspecified fracture of upper end of right humerus, subsequent encounter for fracture with routine healing (principal); X58.XXXD Exposure to other specified factors, subsequent encounter
CPT/HCPCS: 99213; 73030

== ENCOUNTER 2025-03-14 13:55 | Outpatient (CLI) | payer MEDICARE, SELFPAY ==
--- NOTE | 2025-03-14 13:15 | DI.RAD_ITS ---
Exam(s) XR SHOULDER RT COMPLETE 2+V EXAM: XR SHOULDER RT COMPLETE 2+V CLINICAL HISTORY: F/U FRACTURE. TECHNIQUE: 2D digital imaging was performed. Three views. COMPARISON: CR XR SHOULDER RT COMPLETE 2+V from 09/13/2024 FINDINGS: BONES: There has been continued healing of the proximal humeral fracture which is unchanged in [facility] ent. No acute fracture is present. No bony destructive lesion is seen. JOINTS: There is inferior subluxation of the humeral head with respect to the glenoid which is not si gnificantly changed from the previous exam. SOFT TISSUE: Normal. IMPRESSION: The proximal humeral fracture appears nearly completely healed. There is continued inferior subluxat ion of the humeral head with respect to the glenoid. DATA REPOSITORY: RADIATION DOSE DELIVERED:
== END 2025-03-14 13:56 | disposition home or self-care (01) ==
LOC: DIORS 13:55
PROVIDERS: PCP Family Medicine; Referring Provider Family Medicine; Visit Provider Student in an Organized Health Care Education/Training Program
DX: S42.201D Unspecified fracture of upper end of right humerus, subsequent encounter for fracture with routine healing (principal); X58.XXXD Exposure to other specified factors, subsequent encounter
CPT/HCPCS: 99213; 73030

== ENCOUNTER 2025-05-08 08:14 | Outpatient (CLI) | payer MEDICARE, SELFPAY ==
--- NOTE | 2025-05-08 08:00 | RT.EKG_ITS ---
APPROVED REPORT Exam: Resting ECG Reason for Exam: SVT Patient Location: O HR:107 bpm ECG Measurements Heart Rate 107 AXIS CO 177 P 75 QRSd 90 QRS -6 QT 324 T 60 QTc 433 Conclusion Sinus tachycardia with irregular rate...V-rate 75-126, variation>10% Baseline wander in lead(s) II,III,aVF,V6
== END 2025-05-08 08:15 | disposition home or self-care (01) ==
LOC: DI.CARD 08:15
PROVIDERS: PCP Family Medicine; Visit Provider Registered Nurse
DX: R00.0 Tachycardia, unspecified (principal)
CPT/HCPCS: 93010

== ENCOUNTER → 2025-05-08 10:52 | Outpatient (BNVA) | payer MEDICARE, SELFPAY | PROVIDERS: PCP Family Medicine; Visit Provider Registered Nurse | DX: I47.10 Supraventricular tachycardia, unspecified (principal); R06.02 Shortness of breath; Z79.02 Long term (current) use of antithrombotics/antiplatelets | CPT/HCPCS: 99214; 93005 ==

== ENCOUNTER 2025-06-01 03:27 | Outpatient (CLI) | payer MEDICARE, SELFPAY ==
--- NOTE | 2025-06-01 07:30 | DI.US_ITS ---
APPROVED REPORT EXAM: Comprehensive 2D, Doppler, and color-flow Echocardiogram Patient Location: Out-Patient Planning Analyst: Felicia Kan RDCS (AE) Indications: Dyspnea, SOB Other Information Study Quality: Adequate Conclusion Normal left ventricular wall thickness and chamber size. Ejection fraction is 55 to 60%. Wall motion is normal Normal right ventricular size and function Both atria are normal in size Aortic valve is sclerotic and trileaflet without stenosis or regurgitation Normal mitral valve with mild regurgitation Ascending aorta measures 3.45 cm Wall motion Left Ventricle The left ventricle is normal size. The left ventricular systolic function is normal. The left ventricular ejection fraction is within the normal range. There is normal left ventricular wall thickness. There is normal LV segmental wall motion. There is no ventricular septal defect visualized. LVEF is 56%. Right Ventricle The right ventricle is normal size. The right ventricular systolic function is normal. Atria The left atrium size is normal. The right atrium size is normal. The interatrial septum is intact with no evidence for an atrial septal defect. Aortic Valve The Aortic valve is sclerotic. Aortic valve is trileaflet. There is no aortic valvular stenosis. No aortic regurgitation is present. Mitral Valve The mitral valve is normal in structure. No evidence of mitral valve stenosis. Mild mitral regurgitation. Tricuspid Valve The tricuspid valve is normal in structure. There is no tricuspid valve stenosis. Trace to mild tricuspid regurgitation. The RVSP is 30.3_ mmHg. Pulmonic Valve The pulmonary valve is normal in structure. There is no pulmonic valvular stenosis. Trace pulmonic regurgitation. Great Vessels The aortic root is normal in size. The ascending aorta is mildly dilated. Aortic arch is normal in caliber. IVC is normal in size and collapses >50% with inspiration. Pericardium There is no pericardial effusion. 2D Dimensions IVSD d PLAX 0.94 cm F: 0.6-1.0 Ao Root d 2.86 cm F: 2.7 - 3.3 LVPW d PLAX 0.90 cm F: 0.6 - 1.0 Ao Asc Diam d 3.45 cm F: 2.3 - 3.1 LVID d PLAX 4.30 cm F: 3.8 - 5.2 LVDs 3.02 cm F: 2.2 - 3.5 LV EF Teichholz 56.2 % FS 29.10 % LV EDV (Teich) 81.1 mL LV ESV (Teich) 35.5 mL M-Mode TAPSE 2.57 cm (M/F) >1.7 Auto EF LV EDV A4C 86.2 mL LV EDV A2C 89.3 mL LV EDV BP 86.9 mL LV ESV A4C 38.3 mL LV ESV A2C 40.4 mL LV ESV BP 38.4 mL LVEF(%) A4C 55.5 % LVEF(%) A2C 54.7 % LVEF(%) BP 55.8 % LV SV A4C 47.9 ml LV SV A2C 48.9 ml LV SV BP 48.5 ml LV CO A4C 3.2 L/min LV CO A2C 3.4 L/min LV CO BP 3.3 L/min HR A4C 67.39 BPM HR A2C 69.77 BPM LV EDV Index (BP) LA Volume LA Length A4C 4.8 cm LA Length A2C 4.9 cm LA Area A4C s 14.30 cm2 LA Area A2C s 15.62 cm2 LA Vol A4C A-L 36.15 mL LA Vol A2C A-L 41.94 mL LA Vol Biplane A-L 39.5 mL LA Vol/BSA A4C A-L LA Vol/BSA A2C A-L LA Vol/BSA BP A-L 20.1 mL/m2 LA Vol A4C MOD 34.0 mL LA Vol A2C MOD 39.7 mL LA Vol BP MOD 37.1 mL RA Volume RA Area A4C 11.4 cm2 RA ESV A4C (A-L) 26.8mL RA Vol/BSA A4C A-L RA Length A4C 4.1 cm RA ESV A4C (MOD) 27.1mL LV Diastology MV E' medial 0.097 (>0.07 m/s) MV E Vmax 0.74 (0.4-1.3 m/s) MV E/E' MED 7.63 (<14) MV A Vmax 0.75 (0.4-1.3 m/s) MV E' lateral 0.086 (>0.1 m/s) E/A Ratio 1.0 MV E/E' LAT 8.67 (<14) MV E' Average 0.091 m/s MV E/E'(average) 8.12 Aortic Valve AoV Vmax 1.68 m/s LVOT Vmax 1.43 m/s AoV Peak Grad 11.3 mmHg LVOT Peak Grad 8.2 mmHg AoV Area (Vmax) 2.17 cm2 LVOT VTI 0.299 m AoV VTI 0.349 m LVOT Mean Grad 4.2 mmHg AoV Mean [place]. 1.11 m/s LVOT SV 76.64 mL AoV Mean Grad 5.7 mmHg LVOT Diam s 1.80 cm AoV Area (VTI) 2.20 cm2 AV Regurg Peak Gr. 11.33 mmHg Velocity Ratio 0.85 Mitral Valve MV DT 221 (160-240 msec) MV Vmax TIPS 0.81 m/s MV Mean Grad 0.9 (<2mmHg) MV VTI 0.228 m Pulmonary Valve PV Vmax 0.81 (0.5-1.5 m/s) RVOT Vmax 0.73 m/s PV Peak Grad 2.6 mmHg RVOT Peak Gr. 2.1 mmHg PV Mean [place] 0.55 m/s RVOT VTI 0.148 m PV Mean Grad 1.4 mmHg RVOT Mean Gr. 1.2 mmHg Tricuspid Valve RA Pressure 3.00 mmHg TR Vmax 2.61 m/s TV S' 0.15 m/s TR Peak Grad 27.2 mmHg RVSP (TR) 30.3 mmHg
== END 2025-06-01 03:47 ==
LOC: DI 03:27
PROVIDERS: PCP Family Medicine; Visit Provider Internal Medicine Cardiovascular Disease
DX: R06.02 Shortness of breath (principal); I35.0 Nonrheumatic aortic (valve) stenosis
CPT/HCPCS: 93306

== ENCOUNTER → 2025-06-05 14:34 | Outpatient (BNVA) | payer MEDICARE, SELFPAY | PROVIDERS: PCP Family Medicine; Referring Provider Family Medicine; Visit Provider Registered Nurse | DX: I47.10 Supraventricular tachycardia, unspecified (principal); R06.00 Dyspnea, unspecified | CPT/HCPCS: 99214 ==

== ENCOUNTER 2025-07-07 16:07 | Outpatient (REF) | payer MEDICARE, SELFPAY ==
[2025-07-07 21:44] LABS: ALT 20 U/L (14-59); AST 18 U/L (15-37); Albumin 3.8 g/dL (3.4-5.0); Alkaline Phosphatase 71 U/L (46-116); Anion Gap 8.9 mmol/L (3-11); BUN 25 mg/dL (7-18); Bilirubin, Total 0.5 mg/dL (0.2-1.0); CO2 30.1 mmol/L (21.0-32.0); Calcium 9.9 mg/dL (8.5-10.1); Calculated LDL 122 mg/dL (<100); Chloride 102 mmol/L (98-107); Cholesterol 204 mg/dL (<200); Estimated GFR 76.31 (mL/min/1.73m2); Glucose 84 mg/dL (74-106); HDL Cholesterol 47 mg/dL (>or=50); Potassium 4.3 mmol/L (3.5-5.1); Sodium 141 mmol/L (136-145); Total Protein 7.0 g/dL (6.4-8.2); Triglyceride 178 mg/dL (<150)
== END 2025-07-07 16:08 | disposition home or self-care (01) ==
LOC: NCHCN 16:07
PROVIDERS: PCP Family Medicine; Visit Provider Family Medicine
DX: E78.5 Hyperlipidemia, unspecified (principal)
CPT/HCPCS: 80053; 80061

== ENCOUNTER 2025-07-13 04:10 | Outpatient (CLI) | payer MEDICARE, SELFPAY ==
--- NOTE | 2025-07-13 | DI.MAMMO_ITS ---
Exam(s) MAMMO SCREENING EXAM: MAMMO SCREENING CLINICAL HISTORY: SCREENING MAMMO Z12.31 TECHNIQUE: Bilateral full field digital CC and MLO mammographic images were obtained with 3D tomosynthesis and utilizing computer aided detection (CAD). COMPARISON: Comparison is made with prior examinations. FINDINGS: Masses/Architectural Distortion: No suspicious masses or areas of architectural distortion are present. The nodule posteriorly in the lower inner quadrant of the left breast is stable. Microcalcifications: No suspicious pleomorphic-type are seen. Skin Thickening/Nipple Retraction: None. IMPRESSION: 1. No significant interval change with no specific features of malignancy noted. 2. Unless there is more urgent need, screening mammography is recommended, as per [place] [employer] guidelines. BI-RADS Category 2 - Benign Findings Breast Density - Category B - There are scattered areas of fibroglandular density. Breast density Category C or D implies that the patient has dense breast tissue. Dense breast tissue can make it harder to find cancer on a mammogram. Dense breast tissue is also associated with an increased risk of breast cancer. This information about the result of the mammogram report was provided to the patient to raise their awareness. Use this report when you speak with the patient about their risks for breast cancer, which includes their family history. At that time, you may recommend additional screening tests (Ultrasound or MRI) as these tests may add significant information. A negative radiographic report should not delay biopsy if a dominant or clinically suspicious mass is present. Up to ten percent of cancers are not identified on mammography. A negative report may reinforce clinical impression. Adenosis and dense breasts may obscure an underlying neoplasm. False positive reports average 6 to 10%. Patient will receive a letter notifying them of these results.
== END 2025-07-13 04:30 ==
LOC: DI 04:10
PROVIDERS: PCP Family Medicine; Visit Provider Family Medicine
DX: Z12.31 Encounter for screening mammogram for malignant neoplasm of breast (principal)
CPT/HCPCS: 77063; 77067